=== PATIENT | male | born 1955 | race Caucasian/White ===

== ENCOUNTER 2018-01-04 09:48 | Inpatient (IN) | payer OTHER ==
[2018-01-04] MEDS ORDERED: ISOVUE-370 76%-LOCM 1 ML ONE (10:04)
[2018-01-04] MEDS ORDERED: Labetalol HCl 100 MG/20 ML VIAL ONE (10:18)
[2018-01-04 10:20] LABS: #Eosinphils 0.2 thou/uL (0.0-0.7); #Lymphocytes 1.9 thou/uL (1.20-3.40); #Monocytes 0.4 thou/uL (0.11-0.59); #Neutrophils 7.2 thou/uL (1.40-6.50); %Basophils 0.3 % (0.0-1.0); %Eosinophils 1.9 % (0.0-10.0); %Lymphocytes 19.8 % (21.0-51.0); %Monocytes 4.5 % (0.0-10.0); %Neutrophils 73.5 % (42.0-75.0); Hemoglobin 13.1 g/dL (14.0-18.0); Mean Corpuscular Hemoglobin 29.6 pg (27.0-31.0); Mean Corpuscular Volume 82.2 fL (78.0-98.0); Mean Platelet Volume 8.1 fL (7.4-10.4); Platelet Count 200 thou/uL (130-400); Red Blood Cell (RBC) Count 4.44 mill/uL (4.70-6.10); White Blood Cell (WBC) Count 9.8 thou/uL (4.8-10.8)
[2018-01-04 10:46] LABS: CKMB 3.5 ng/mL (0-6.6); Troponin I Less than 0.010 ng/mL (< 0.028)
--- NOTE | 2018-01-04 10:49 | RAD ---
PORTABLE CHEST ONE VIEW: History: 62-year-old male with history of dyspnea. FINDINGS: Monitor leads overlie the chest. There are bilateral interstitial and alveolar parenchymal changes in the mid and lower lung zones bilaterally with small pleural effusions, greater on the right side. Po ssibilities include that of some developing bilateral edema or less likely, atypical bilateral pneumo nitis. IMPRESSION: Interstitial and alveolar parenchymal changes in the mid and lower lung zones with small right pleura l effusion, concerning for pulmonary edema or atypical pneumonitis. POS: [facility]
[2018-01-04 11:02] LABS: ALT (SGPT) 20 U/L (8-55); AST (SGOT) 18 U/L (5-34); Albumin 3.7 g/dL (3.4-4.8); Alkaline Phosphatase 158 U/L (40-150); Anion Gap 11 mmol/L (10-20); BUN (Urea Nitrogen) 35 mg/dL (8.4-25.7); Bilirubin, Total 0.8 mg/dL (0.2-1.2); CK (CPK) 159 U/L (30-200); Calc. Creatinine Clearance 0 mL/min (70-130); Calcium 8.8 mg/dL (7.8-10.44); Carbon Dioxide 24 mmol/L (23-31); Chloride 103 mmol/L (98-107); Estimated GFR-MDRD 36; Glucose 391 mg/dL (80-115); Lipase 33 U/L (8-78); Potassium 4.7 mmol/L (3.5-5.1); Protein, Total 6.7 g/dL (5.8-8.1); Sodium 133 mmol/L (136-145)
[2018-01-04] MEDS ORDERED: Furosemide 40 MG/4 ML VIAL ONE (11:29)
[2018-01-04] MEDS ORDERED: Nitroglycerin 2% Ointment 1 INCH/1 GM Packet ONE (11:29)
--- NOTE | 2018-01-04 12:00 | CT ---
CT ARTERIOGRAM CHEST WITH IV CONTRAST AND 3D MIP IMAGING: History: Dyspnea. FINDINGS: Good contrast opacification of the pulmonary arteries and thoracic aorta with normal branching of the great vessels. Small amount of bilateral pleural fluid with atelectasis at the lung bases. Airways a re patent. Nonenlarged, nonspecific lymph nodes scattered about the mediastinum. IMPRESSION: 1. No CT evidence of pulmonary embolus. 2. Bilateral pleural effusions. Cause is not evident. POS: [facility]
[2018-01-04] MEDS ORDERED: Dextrose 50% Abboject 50 ML SYRINGE SLOW IVP PRN (13:43)
[2018-01-04] MEDS ORDERED: Acetaminophen 325 MG TAB PO PRN (13:43)
[2018-01-04] MEDS ORDERED: Bisacodyl 5 MG TAB PO PRN (13:43)
[2018-01-04] MEDS ORDERED: Dextrose 5% in Water 1,000 ML IV PRN (13:43)
[2018-01-04 14:15] LABS: Troponin I Less than 0.010 ng/mL (< 0.028)
--- NOTE | 2018-01-04 14:18 | HP ---
DATE OF ADMISSION: 01/04/2018 PRIMARY CARE PROVIDER: Edward Nguyễn M.D. CHIEF COMPLAINT: Shortness of breath. HISTORY OF PRESENT ILLNESS: Mr. Nolasco is a pleasant 62-year-old gentleman who was seen at [facility] on 01/04/2018. Approximately 1-1/2 years ago, he developed shortness of breath. He was initially diagnosed with res piratory tract infection. Subsequently, he was found to have excess fluid. He was seen by cardiolog ist, Dr. Lu at that time. He has not needed to see Dr. Lu again after that. He was re portedly doing well until a couple of weeks ago. He reports a weight gain over the last couple of weeks. He reports shortness of breath with exertion , orthopnea and paroxysmal nocturnal dyspnea. He denies any cough, fevers or chills. He reports low er extremity edema, worse on the left. He reports fatigue with minimal exertion. He was seen by his primary care provider about 4 days ago. He had blood test done, including D-dimer . D-dimer was elevated. He was advised to go to the emergency room that day. However, there was so me misunderstanding and the patient went home. The patient's daughter contacted primary care provide r's office and was told that the patient should go to the emergency room today. Therefore, the patie nt came to the emergency room. REVIEW OF SYSTEMS: All other systems reviewed and found to be negative. PAST MEDICAL HISTORY: Diabetes mellitus, dyslipidemia and hypertension. PAST SURGICAL HISTORY: None. SOCIAL HISTORY: The patient reports occasional alcohol use, no tobacco use or recreational drug use. FAMILY HISTORY: Significant for myocardial infarction in his son. ALLERGIES: No known drug allergies. CURRENT MEDICATIONS: The patient is unable to recall the names of his medications. This will be cla rified by his family when they bring the medication list in to the hospital. PHYSICAL EXAMINATION: GENERAL: Mr. Nolasco is awake and alert, not in acute distress. VITAL SIGNS: Blood pressure is 189/82, pulse is 67, respiratory rate 17 and oxygen saturation 97% on room air. He is afebrile. Earlier, he had blood pressure as high as 211/105. EYES: No scleral icterus. No conjunctival pallor. ENT: Moist mucosal membranes. No oropharyngeal erythema or exudates. NECK: Supple, nontender, trachea is midline. Hepatojugular reflux present. RESPIRATORY: Accessory muscles of breathing are not active. Chest wall movements are symmetric bila terally. He has bibasilar crackles. CARDIOVASCULAR: S1 and S2 are heard, regular. Peripheral pulses palpable. No carotid bruit, no per icardial rub. ABDOMEN: Soft, distended, nontender, bowel sounds are heard, no hepatomegaly, no splenomegaly. NEUROLOGIC: Cranial nerves II-XII intact. Deep tendon reflexes are 2+. MUSCULOSKELETAL: Power is 5/5 in all 4 extremities. LYMPHATIC: No cervical lymphadenopathy. SKIN: No rashes or subcutaneous nodules. He has pitting edema over the left lower extremity. PSYCHIATRIC: Normal mood, normal affect. The patient is oriented to person, place and time. LABORATORY DATA: Mr. Nolasco' labs and investigations were reviewed. I reviewed his electrocardio gram, which shows normal sinus rhythm, no ST changes to suggest an acute coronary syndrome. I also r eviewed his chest x-ray, which shows interstitial edema. He also had CT angiogram of the chest, whic h did not show any CT evidence of pulmonary embolus. He has bilateral pleural effusions. He has nor mal white count, normocytic anemia with hemoglobin 13.1, normal platelet count, decreased sodium of 1 33, elevated blood urea nitrogen of 35, elevated creatinine of 1.92, last known creatinine 1.79 on , elevated alkaline phosphatase of 158, otherwise unremarkable liver profile, normal troponin I and elevated BNP of 372.9 ASSESSMENT AND PLAN: Mr. Nolasco is a pleasant 62-year-old gentleman who was seen at [facility] on 01/04/2018. His problem list includes: 1. Shortness of breath: Most likely secondary to congestive heart failure exacerbation. The rossana poe will be admitted to the hospital for further management. 2. Congestive heart failure exacerbation: The patient is presenting with congestive heart failure e xacerbation. He will be treated with intravenous diuretics. A 2D echocardiogram will be ordered and Cardiology Service will be consulted for opinion and help with management. 3. Chronic kidney disease stage 3: Monitor creatinine and electrolytes, especially since the patien deepika will be receiving intravenous diuretics. The patient has also received intravenous contrast for CT angiogram of the chest. 4. Diabetes mellitus type 2: Start Accu-Cheks, insulin sliding scale. 5. Dyslipidemia: Resume the patient's dyslipidemia medication once clarified. 6. Hypertensive urgency: The patient had blood pressure elevations in the emergency room. We will start the patient on p.r.n. IV hydralazine for now. Once his home medications are clarified, he can be started on home medications if they are not nephrotoxic. Many thanks for allowing me to participate in your patient's care. Please feel free to contact me wi th any questions or concerns. LEVEL OF RISK: High. LEVEL OF COMPLEXITY: High.
[2018-01-04 15:22] VITALS: BMI 30.5
[2018-01-04 17:41] LABS: Troponin I Less than 0.010 ng/mL (< 0.028)
[2018-01-04] MEDS: Furosemide 40 MG/4 ML VIAL SLOW IVP SCH (17:58)
[2018-01-04] MEDS: hydrALAZINE 20 MG/ML VIAL SLOW IVP PRN (17:58)
[2018-01-04] MEDS: HumaLOG 300 UNITS/3 ML VIAL SC PRN (19:01)
[2018-01-04] MEDS: Carvedilol 25 MG TAB PO SCH (20:08)
[2018-01-05 04:27] LABS: #Eosinphils 0.2 thou/uL (0.0-0.7); #Lymphocytes 2.2 thou/uL (1.20-3.40); #Monocytes 0.7 thou/uL (0.11-0.59); #Neutrophils 5.9 thou/uL (1.40-6.50); %Basophils 0.5 % (0.0-1.0); %Eosinophils 2.7 % (0.0-10.0); %Lymphocytes 24.3 % (21.0-51.0); %Monocytes 7.4 % (0.0-10.0); %Neutrophils 65.1 % (42.0-75.0); Hemoglobin 12.3 g/dL (14.0-18.0); Mean Corpuscular Hemoglobin 29.7 pg (27.0-31.0); Mean Corpuscular Volume 82.5 fL (78.0-98.0); Mean Platelet Volume 7.3 fL (7.4-10.4); Platelet Count 178 thou/uL (130-400); RBC Distribution Width 12.7 % (11.5-14.5); Red Blood Cell (RBC) Count 4.13 mill/uL (4.70-6.10); White Blood Cell (WBC) Count 9.1 thou/uL (4.8-10.8)
[2018-01-05 04:47] LABS: Anion Gap 11 mmol/L (10-20); BUN (Urea Nitrogen) 37 mg/dL (8.4-25.7); Calc. Creatinine Clearance 55 mL/min (70-130); Calcium 9.1 mg/dL (7.8-10.44); Carbon Dioxide 25 mmol/L (23-31); Chloride 104 mmol/L (98-107); Estimated GFR-MDRD 43; Glucose 188 mg/dL (80-115); Potassium 4.1 mmol/L (3.5-5.1); Sodium 136 mmol/L (136-145)
[2018-01-05] MEDS: Furosemide 40 MG/4 ML VIAL SLOW IVP SCH ×2 (05:12→16:33)
[2018-01-05] MEDS ORDERED: Enoxaparin Sodium 40 MG/0.4 ML SYRINGE SC SCH (09:00)
[2018-01-05] MEDS: Alogliptin 25 MG TAB PO SCH (09:33)
[2018-01-05] MEDS: Carvedilol 25 MG TAB PO SCH ×2 (09:34→20:09)
--- NOTE | 2018-01-05 10:30 | ADD-ER ---
ADDENDUM Mr. Nolasco's 1 year ago, today being her anniversary. He has been declining over the last 3 weeks with increasing fatigue. I also discussed his code status. He is DNR. DNR status will be entered in the electronic chart.
--- NOTE | 2018-01-05 15:59 | PDOC.PN ---
- Subjective Encounter Start Date: 01/05/18 Encounter Start Time: 10:00 Patient is seen today, along with his Daughter, Pt is Rwandan speaking, has New onset CHF, pending Echo. Dr. Marte consulted. - Objective Resuscitation Status: Resuscitation Status DNR:Do Not Resuscitate MAR Reviewed: Yes Vital Signs & Weight: Vital Signs (12 hours) Temp Pulse Pulse Pulse Resp BP BP 01/05/18 13:26 98.0 F 63 16 01/05/18 09:50 64 65 190/86 H 188/81 H 01/05/18 08:46 01/05/18 08:42 98.7 F 68 16 01/05/18 08:00 98.7 F 68 16 01/05/18 04:00 98.8 F 66 18 BP BP Pulse Ox Pulse Ox Pulse Ox 01/05/18 13:26 141/68 H 94 L 01/05/18 09:50 94 L 95 01/05/18 08:46 183/73 H 01/05/18 08:42 187/84 H 95 01/05/18 08:00 01/05/18 04:00 168/82 H 94 L Weight Weight 181 lb I&O: 01/04/18 01/05/18 01/06/18 06:59 06:59 06:59 Intake Total 150 Output Total 1100 Balance -950 Result Diagrams: 01/05/18 04:04 01/05/18 04:04 Additional Labs: Accuchecks 01/05/18 01/04/18 01/04/18 05:05 21:04 18:54 POC Glucose 172 H 242 H 288 H Radiology Reviewed by me: Yes Phys Exam - Physical Examination HEENT: PERRLA, moist MMs Neck: no nodes, no JVD Respiratory: no rales, no rhonchi, wheezing present Cardiovascular: RRR, no significant murmur Gastrointestinal: soft, non-tender Musculoskeletal: edema present Neurological: non-focal, normal sensation Dx/Plan (1) Acute exacerbation of CHF (congestive heart failure) Code(s): I50.9 - HEART FAILURE, UNSPECIFIED Status: Acute Qualifiers: Heart failure type: unspecified Qualified Code(s): I50.9 - Heart failure, unspecified Comment: Waiitng on Echo results, pt is BB, Lisinopril and Lasix 40mg IV BID, continue, COnsulted Dr. Marte. (2) Exertional dyspnea Code(s): R06.09 - OTHER FORMS OF DYSPNEA Status: Acute Comment: Pt will need Evaalution of Cardiac disease, if abnormal Echo will do stress test. (3) DM type 2 (diabetes mellitus, type 2) Status: Acute Comment: COntinue with oral hypoglycemics, and SSI. keep Bg 140- 180 (4) HTN (hypertension) Code(s): I10 - ESSENTIAL (PRIMARY) HYPERTENSION Status: Acute Comment: will continue with Lisinopril, BB. Add Spironlactone if low Ef. - Plan cont current plan of care, plan discussed w/ family, PT/OT, social welfare clerk, respiratory therapy, incentive spirometry, out of bed/ambulate, DVT proph w/ lovenox * . Review of Systems - Review of Systems Eyes: negative: Pain, Vision Change, Conjunctivae Inflammation, Eyelid Inflammation, Redness, Other ENT: negative: Ear Pain, Ear Discharge, Nose Pain, Nose Discharge, Nose Congestion, Mouth Pain, Mouth Swelling, Throat Pain, Throat Swelling, Other Respiratory: SOB with Excertion, Wheezing. negative: Cough, Dry, Shortness of Breath, Hemoptysis, Pleuritic Pain, Sputum Cardiovascular: orthopnea, edema Gastrointestinal: negative: Nausea, Vomiting, Abdominal Pain, Diarrhea, Constipation, Melena, Hematochezia, Other Genitourinary: negative: Dysuria, Frequency, Incontinence, Hematuria, Retention , Other Musculoskeletal: negative: Neck Pain, Shoulder Pain, Arm Pain, Back Pain, Hand Pain, Leg Pain, Foot Pain, Other - Medications/Allergies Allergies/Adverse Reactions: Allergies Allergy/AdvReac Type Severity Reaction Status Date / Time No Known Drug Allergies Allergy Verified 01/04/18 13:43 Medications: Current Medications Acetaminophen (Tylenol) 650 mg PO Q4H PRN PRN Reason: Headache/Fever or Pain Alogliptin Benzoate (Alogliptin) 12.5 mg PO DAILY [facility] Last Admin: 01/05/18 09:33 Dose: 12.5 mg Bisacodyl (Dulcolax) 10 mg PO DAILYPRN PRN PRN Reason: Constipation Carvedilol (Coreg) 12.5 mg PO BID [facility] Last Admin: 01/05/18 09:34 Dose: 12.5 mg Dextrose/Water (Dextrose 50%) 25 gm SLOW IVP PRN PRN PRN Reason: Hypoglycemia Furosemide (Lasix) 40 mg SLOW IVP 0600,1400 [facility] Last Admin: 01/05/18 05:12 Dose: 40 mg Glipizide (Glucotrol Xl) 5 mg PO QAM-WM [facility] Last Admin: 01/05/18 12:11 Dose: 5 mg Glucagon (Glucagon) 1 mg IM PRN PRN PRN Reason: Hypoglycemia Hydralazine HCl (Apresoline) 10 mg SLOW IVP Q6H PRN PRN Reason: SBP Greater Than 170 Last Admin: 01/04/18 17:58 Dose: 10 mg Dextrose/Water (D5w) 1,000 mls @ 0 mls/hr IV .Q0M PRN PRN Reason: Hypoglycemia Insulin Human Lispro (Humalog) 0 units SC .MILD SLIDING SCALE PRN PRN Reason: Mild Correctional Scale Last Admin: 01/04/18 19:01 Dose: 4 unit
[2018-01-05] MEDS: HumaLOG 300 UNITS/3 ML VIAL SC PRN (18:24)
[2018-01-06] MEDS: hydrALAZINE 20 MG/ML VIAL SLOW IVP PRN (04:18)
[2018-01-06] MEDS: Furosemide 40 MG/4 ML VIAL SLOW IVP SCH ×2 (05:48→15:07)
[2018-01-06] MEDS: Alogliptin 25 MG TAB PO SCH (08:50)
[2018-01-06] MEDS: Carvedilol 25 MG TAB PO SCH ×2 (08:50→20:07)
[2018-01-06] MEDS ORDERED: Lisinopril 2.5 MG TAB PO SCH (09:00)
[2018-01-06 11:20] LABS: Anion Gap 15 mmol/L (10-20); BUN (Urea Nitrogen) 35 mg/dL (8.4-25.7); Calc. Creatinine Clearance 54 mL/min (70-130); Calcium 9.3 mg/dL (7.8-10.44); Carbon Dioxide 24 mmol/L (23-31); Chloride 101 mmol/L (98-107); Estimated GFR-MDRD 43; Glucose 152 mg/dL (80-115); Potassium 4.1 mmol/L (3.5-5.1); Sodium 136 mmol/L (136-145)
[2018-01-06] MEDS ORDERED: Metolazone 5 MG TAB PO SCH (15:15)
--- NOTE | 2018-01-06 15:20 | PDOC.PN ---
- Subjective Encounter Start Date: 01/06/18 Encounter Start Time: 14:00 PAtient is c/o persistant dyspnea on exertion, with SOB, deneis any chest pain, Pt has Low EF waiting for Cardiology to see. Serial tropinins were negative. - Objective Resuscitation Status: Resuscitation Status DNR:Do Not Resuscitate MAR Reviewed: Yes Vital Signs & Weight: Vital Signs (12 hours) Temp Pulse Pulse Pulse Resp BP BP 01/06/18 11:36 98.7 F 65 14 01/06/18 09:15 69 67 145/75 H 147/77 H 01/06/18 08:51 68 01/06/18 08:46 98.2 F 68 16 01/06/18 04:18 55 L 01/06/18 04:15 01/06/18 04:00 98.3 F 62 20 BP BP Pulse Ox Pulse Ox Pulse Ox 01/06/18 11:36 136/74 96 01/06/18 09:15 95 94 L 01/06/18 08:51 01/06/18 08:46 167/79 H 94 L 01/06/18 04:18 01/06/18 04:15 196/85 H 01/06/18 04:00 181/82 H 98 Weight Weight 178 lb I&O: 01/05/18 01/06/18 01/07/18 06:59 06:59 06:59 Intake Total 150 60 Output Total 1100 500 Balance -950 -440 Result Diagrams: 01/05/18 04:04 01/06/18 05:01 Additional Labs: Accuchecks 01/06/18 01/06/18 01/05/18 10:57 05:31 20:38 POC Glucose 324 H 168 H 225 H 01/05/18 15:59 POC Glucose 281 H Radiology Reviewed by me: Yes Phys Exam - Physical Examination HEENT: PERRLA, moist MMs Neck: no nodes, no JVD Respiratory: no wheezing, no rales Cardiovascular: RRR, no significant murmur Gastrointestinal: soft, non-tender Musculoskeletal: no edema, pulses present Neurological: non-focal, normal sensation Lymphatic: no nodes Psychiatric: normal affect, A&O x 3 Skin: no rash, normal turgor Dx/Plan (1) Acute exacerbation of CHF (congestive heart failure) Code(s): I50.9 - HEART FAILURE, UNSPECIFIED Status: Acute Qualifiers: Heart failure type: unspecified Qualified Code(s): I50.9 - Heart failure, unspecified Comment: Waiitgwen on Echo results, pt is BB, Lisinopril and Lasix 40mg IV BID, continue, COnsulted Dr. Marte. (2) Exertional dyspnea Code(s): R06.09 - OTHER FORMS OF DYSPNEA Status: Acute Comment: Pt will need Evaalution of Cardiac disease, if abnormal Echo will do stress test. (3) DM type 2 (diabetes mellitus, type 2) Status: Acute Comment: COntinue with oral hypoglycemics, and SSI. keep Bg 140- 180 (4) HTN (hypertension) Code(s): I10 - ESSENTIAL (PRIMARY) HYPERTENSION Status: Acute Comment: will continue with Lisinopril, BB. Add Spironlactone if low Ef. - Plan cont current plan of care, PT/OT, medical social worker, respiratory therapy, incentive spirometry, DVT proph w/lovenox * . Review of Systems - Review of Systems Constitutional: negative: fever, chills, sweats, weakness, malaise, other Eyes: negative: Pain, Vision Change, Conjunctivae Inflammation, Eyelid Inflammation, Redness, Other ENT: negative: Ear Pain, Ear Discharge, Nose Pain, Nose Discharge, Nose Congestion, Mouth Pain, Mouth Swelling, Throat Pain, Throat Swelling, Other Respiratory: Shortness of Breath, SOB with Excertion, Wheezing Cardiovascular: negative: chest pain, palpitations, orthopnea, paroxysmal nocturnal dyspnea, edema, light headedness, other Gastrointestinal: negative: Nausea, Vomiting, Abdominal Pain, Diarrhea, Constipation, Melena, Hematochezia, Other Musculoskeletal: negative: Neck Pain, Shoulder Pain, Arm Pain, Back Pain, Hand Pain, Leg Pain, Foot Pain, Other Skin: negative: Rash, Lesions, Jd, Bruising, Other - Medications/Allergies Allergies/Adverse Reactions: Allergies Allergy/AdvReac Type Severity Reaction Status Date / Time No Known Drug Allergies Allergy Verified 01/04/18 13:43 Medications: Current Medications Acetaminophen (Tylenol) 650 mg PO Q4H PRN PRN Reason: Headache/Fever or Pain Alogliptin Benzoate (Alogliptin) 12.5 mg PO DAILY [facility] Last Admin: 01/06/18 08:50 Dose: 12.5 mg Amlodipine Besylate (Norvasc) 5 mg PO DAILY [facility] Bisacodyl (Dulcolax) 10 mg PO DAILYPRN PRN PRN Reason: Constipation Carvedilol (Coreg) 12.5 mg PO BID [facility] Last Admin: 01/06/18 08:50 Dose: 12.5 mg Dextrose/Water (Dextrose 50%) 25 gm SLOW IVP PRN PRN PRN Reason: Hypoglycemia Furosemide (Lasix) 40 mg SLOW IVP 0600,1400 [facility] Last Admin: 01/06/18 15:07 Dose: 40 mg Glipizide (Glucotrol Xl) 5 mg PO [facility] Last Admin: 01/06/18 08:50 Dose: 5 mg Glucagon (Glucagon) 1 mg IM PRN PRN PRN Reason: Hypoglycemia Hydralazine HCl (Apresoline) 10 mg SLOW IVP Q6H PRN PRN Reason: SBP Greater Than 170 Last Admin: 01/06/18 04:18 Dose: 10 mg Dextrose/Water (D5w) 1,000 mls @ 0 mls/hr IV .Q0M PRN PRN Reason: Hypoglycemia Insulin Human Lispro (Humalog) 0 units SC .MILD SLIDING SCALE PRN PRN Reason: Mild Correctional Scale Last Admin: 01/05/18 18:24 Dose: 4 unit Metolazone (Zaroxolyn) 5 mg PO ONE [facility] Spironolactone (Aldactone) [facility]
[2018-01-06 16:25] LABS: Troponin I Less than 0.010 ng/mL (< 0.028)
[2018-01-06] MEDS: Amlodipine 5 MG TAB PO SCH (16:32)
[2018-01-06] MEDS: HumaLOG 300 UNITS/3 ML VIAL SC PRN (17:43)
--- NOTE | 2018-01-06 20:35 | CON ---
DATE OF CONSULTATION: 01/06/2018 DATE OF ADMISSION: 01/04/2018 CARDIOLOGY CONSULT NOTE INDICATION FOR CONSULTATION: A 62-year-old gentleman with a history of cardiomyopathy was admitted w ith increasing shortness of breath. We were asked to see him. Also has history of hypertension. HISTORY OF PRESENT ILLNESS: This is a very unfortunate 62-year-old gentleman who has been followed b y Dr. Lu in the past. He actually saw back in 2017. He had at that time was diagnosed with c ardiomyopathy and ejection fraction is estimated at 20%-25%. He underwent a nuclear study which also showed ejection fraction about 26%. He had an inferior scar was advised to undergo cardiac catheter ization, but due to finances, this was not performed. He declined it. He also was advised to have a LifeVest and this also was declined. He had not seen Dr. Lu since 2016, but has been noticin g he recently had increasing shortness of breath. He also had some lower extremity edema and complai nohelia of some leg discomfort when he walked as claudication type symptoms. He presented to his primary care physician's office complaining of shortness of breath and had a D-dimer performed and apparentl y this was elevated and he was advised to go to the emergency room. He did not quite understand what it was being told and then daughter called back a couple days later and several days later he actual ly presented to the emergency room and was admitted with a diagnosis of congestive heart failure. He did undergo a CT angiogram, which did not show any evidence of a pulmonary embolus. His cardiac enz ymes are negative for myocardial infarction. He does have a history of bilateral pleural effusions i n the past and on this chest x-ray at this time, he also has small bilateral pleural effusions, but n ot enough that would account for his increasing shortness of breath. Also, he has a long history of hypertension, which has been poorly controlled, has been very difficult to control. He has been plac ed on DEE inhibitors and his creatinine has increased from 0.9 up to 1.9 on this admission between until the present date uncertain as to when he was started on DEE, I believe he was already on DEE inhibitors and the creatinine had remained normal. At this time, he is pain free. He denies any chest pain, but does have a history of diabetes. He complains also of weight gain over the last cou ple of weeks, which most likely is due to volume overload. He has not been paying close attention to his fluid intake nor to his sodium intake. He has apparently been taking his medications. He has rojas d some problem, perhaps with depression and anxiety after his less than a year ago and most likely he has not been taking care of himself and he has not been seen in the office again since his last visit back in I believe June or July of 2016. His echocardiogram at that time did show ej ection fraction about 25%-30%. He had a repeat echocardiogram yesterday, which showed ejection fract ion about 30%-35%. He also had mild to moderate mitral valve regurgitation as well as some mild tric uspid valve regurgitation. At this time, he is feeling better. He is able to ambulate. He has been urinating quite a bit. He had not been keeping up correctly with his I's and O's and he has been do ubling out the urine himself and the I's and O's from the nursing staff do not reflect the amount of urine output the patient has had and actual his creatinine has slightly improved. PAST MEDICAL HISTORY: Significant for the hypertension, diabetes and dyslipidemia. He has had no past surgical history. SOCIAL HISTORY: According to the records, he has occasional alcohol use disorder says he does not dr ink. He has no tobacco abuse. He lives at home with his family. FAMILY HISTORY: Apparently, he has a son who has also suffered a myocardial infarction, underwent an gioplasty and stent placement. ALLERGIES: . MEDICATIONS PRIOR TO ADMISSION: Should have included glipizide, lisinopril/hydrochlorothiazide, furo semide 20 mg a day, Coreg 12.5 mg b.i.d. and Januvia 50 mg daily. REVIEW OF SYSTEMS: Difficult to obtain. His daughter is there as an line o scribe operator. According to the daughter, he has only been complaining of some shortness of breath, occasional coughing and some disc omfort in his legs when he walks. Otherwise, there was no significant other GI or complaints or m usculoskeletal, neurological complaints on the review of systems. PHYSICAL EXAMINATION: GENERAL: Reveals a well-developed, well-nourished gentleman. He is in no acute distress at this [facility]. VITAL SIGNS: Blood pressure is 196/85, heart rate is in the 50s-60s and shows a sinus rhythm on the monitor. He is afebrile and respiratory rate is about 20. HEENT: Shows the head to be normocephalic and atraumatic. NECK: Carotid pulses are present. I did not hear any bruits. I do not see any JVD. The thyroid di d not appear to be enlarged. CHEST: Clear to auscultation. I did not hear any rales, rhonchi or wheezing. CARDIOVASCULAR: Exam reveals a regular rate and rhythm with a normal S1, S2, but I did not hear an S 3 nor an S4 and there were no gallops. No significant murmurs were noted. ABDOMEN: Shows some mild obesity with positive bowel sounds. No organomegaly or masses. No tendern ess. I did not hear any bruits. Femoral pulses are present. EXTREMITIES: Showed 1-2+ lower extremity edema. The left lower extremity was slightly more edematou s than the right. Pedal pulses, I cannot palpate a right posterior tibial pulse, the anterior tibial pulses and dorsalis pedis pulse were present on the left side. On the right side, I could palpate t he posterior tibial, but could not palpate a dorsalis pedis pulse. NEUROLOGIC: He appears to be fully intact. He appeared to have normal strength and tone. He ambula sumi without any difficulties. LABORATORY AND DATA: Shows a creatinine of 1.64. His creatinine previously in May was 0.96 incr eased up to 1.39 and then yesterday on the day of admission was 1.92. His BUN was 37, potassium was 4.1. Blood sugars have anywhere between 172-235. His WBC was 9.1, hemoglobin 12.3, platelet count o f 178,000. Chest x-ray did show some mild congestion, but very minimal and his BNP was 372 and there were small bilateral pleural effusions. His EKG showed a sinus rhythm without any acute changes. He did have a n incomplete right bundle branch block, but no evidence of ischemia. He did have some T-wave changes in the lateral leads, which could be indicative of possibly lateral ischemia. This may be due to th e incomplete right bundle branch block with some nonspecific changes. IMPRESSION: 1. Congestive heart failure symptoms in a patient with a history of cardiomyopathy in the past who h as not been compliant with his sodium and fluid intake. He has apparently been diuresing quite well with the Lasix and we will continue this regimen at this time. 2. Chronic kidney disease, which has developed within the last year and a half. I will hold his DEE inhibitors at this time to see whether or not the renal function will improve, would have to give co nsideration to possible renal artery stenosis with the hypertension, which has been difficult to cont rol on several medications, but I do not hear bruit. This can be evaluated later by arteriograms or either Doppler evaluation, also with the chronic kidney disease, this is most likely; however, is due to the combination of the hypertension and the diabetes. 3. Diabetes, which will be dealt by the primary care service. 4. History of cardiomyopathy with ejection fraction previously over a year ago 20%-25%, and now is i ncreased at 30%-35%. This will be dealt with also. We will need to rediscuss the possibility of an AICD in this gentleman, also prior to that most likely he will need to undergo a cardiac catheterizat ion to rule out evidence of significant coronary artery disease as the possible etiology of his cardi omyopathy. Previous stress testing did show evidence of possible inferior scar with a decrease in ej ection fraction, but at that time, the patient did refuse to undergo cardiac catheterization due to l ack of finances. Dr. Lu will resume the care of the patient tomorrow and further recommendati ons will depend on his judgment after he sees the patient.
[2018-01-07] MEDS: Furosemide 40 MG/4 ML VIAL SLOW IVP SCH ×2 (05:24→15:22)
[2018-01-07 06:20] LABS: Anion Gap 12 mmol/L (10-20); BUN (Urea Nitrogen) 46 mg/dL (8.4-25.7); Calc. Creatinine Clearance 42 mL/min (70-130); Carbon Dioxide 28 mmol/L (23-31); Chloride 99 mmol/L (98-107); Estimated GFR-MDRD 32; Glucose 179 mg/dL (80-115); Potassium 4.1 mmol/L (3.5-5.1); Sodium 135 mmol/L (136-145)
[2018-01-07] MEDS ORDERED: Spironolactone 25 MG TAB PO SCH (08:00)
[2018-01-07] MEDS ORDERED: Lisinopril 10 MG TAB PO SCH (09:00)
--- NOTE | 2018-01-07 10:53 | PDOC.PN ---
- Subjective Encounter Start Date: 01/07/18 Encounter Start Time: 10:51 - Objective Resuscitation Status: Resuscitation Status DNR:Do Not Resuscitate MAR Reviewed: Yes Vital Signs & Weight: Vital Signs (12 hours) Temp Pulse Resp BP BP Pulse Ox 01/07/18 08:18 98.1 F 62 14 152/70 H 98 01/07/18 03:05 98.8 F 66 16 133/67 95 01/06/18 23:30 97.9 F 68 16 127/64 96 Weight Weight 180 lb I&O: 01/06/18 01/07/18 01/08/18 06:59 06:59 06:59 Intake Total 60 1560 Output Total 500 3700 Balance -440 -2140 Result Diagrams: 01/05/18 04:04 01/07/18 05:38 Additional Labs: Accuchecks 01/07/18 01/06/18 01/06/18 05:35 21:00 17:09 POC Glucose 185 H 178 H 257 H 01/06/18 10:57 POC Glucose 324 H Phys Exam - Physical Examination HEENT: PERRLA Respiratory: no wheezing, no rales, no rhonchi, clear to auscultation bilateral Cardiovascular: RRR, no significant murmur, no rub Gastrointestinal: soft, non-tender, positive bowel sounds Musculoskeletal: edema present 2+ pitting edema of both lower extremities Dx/Plan (1) Acute on chronic systolic heart failure, NYHA class 2 Code(s): I50.23 - ACUTE ON CHRONIC SYSTOLIC (CONGESTIVE) HEART FAILURE Status : Acute (2) DM type 2 (diabetes mellitus, type 2) Status: Chronic Comment: COntinue with oral hypoglycemics, and SSI. keep Bg 140-180 (3) HTN (hypertension) Code(s): I10 - ESSENTIAL (PRIMARY) HYPERTENSION Status: Chronic Comment: will continue with Lisinopril, BB. Add Spironlactone if low Ef. (4) Acute on chronic kidney failure Code(s): N17.9 - ACUTE KIDNEY FAILURE, UNSPECIFIED; N18.9 - CHRONIC KIDNEY DISEASE, UNSPECIFIED Status: Acute - Plan * Acute on chronic systolic heart failure- he is diuresing well * Awaiting further recommendations from Cardiology * Acute on chronic kidney failure- likely a result of Lasix- will continue to monitor. * DM- blood glucose is stable * HTN- blood pressure is better * Stress test is ordered
[2018-01-07] MEDS: Alogliptin 25 MG TAB PO SCH (11:16)
[2018-01-07] MEDS: Carvedilol 25 MG TAB PO SCH ×2 (11:17→21:42)
[2018-01-07] MEDS: HumaLOG 300 UNITS/3 ML VIAL SC PRN ×2 (11:18→17:07)
--- NOTE | 2018-01-07 16:50 | PRG ---
DATE OF SERVICE: 01/07/2018 SUBJECTIVE: Mr. Nolasco is doing well. He states he has less shortness of breath, no chest pain o r pressure noted. PHYSICAL EXAMINATION: GENERAL: Patient is a pleasant male who is in no acute distress. The patient appears his stated age. VITAL SIGNS: Blood pressure 150/76, pulse 65, temperature 98.2. NEUROLOGIC: The patient is alert and oriented times 3 with no focal neurologic deficits. HEENT: Sclerae without icterus. Mouth has moist mucous membranes with normal pallor. NECK: No JVD. Carotid upstroke brisk. No bruits bilaterally. LUNGS: Clear to auscultation with unlabored respirations. BACK: No scoliosis or kyphosis. CARDIAC: Regular rate and rhythm with normal S1 and S2. No S3 or S4 noted. No significant rubs, murmurs, thrills, or gallops noted throughout the precordium. PMI is not displaced. There is no parasternal heave. ABDOMEN: Soft, nontender, nondistended. No peritoneal signs present. No hepatosplenomegaly. No abnormal striae. EXTREMITIES: 2+ femoral and 2+ dorsalis pedis pulses. No cyanosis, clubbing, or edema. SKIN: No gross abnormalities. PERTINENT LABORATORY DATA: Hemoglobin 12.3. IMPRESSION: Acute on chronic systolic heart failure. RECOMMENDATIONS: I discussed proceeding with coronary angiography with Mr. Nolasco. I discussed r isks and benefits. We discussed this in the past along the office. Unfortunately, he has not been c ompliant with these visits. He would like to proceed with medical therapy. He also has refused Life Vest in the past. I would therefore continue with beta ivette therapy, DEE inhibitor therapy, april nolactone and metolazone. Continue Imdur.
[2018-01-07] MEDS: Amlodipine 5 MG TAB PO SCH (17:03)
[2018-01-08] MEDS: Furosemide 40 MG/4 ML VIAL SLOW IVP SCH (05:30)
--- NOTE | 2018-01-08 06:00 | PDOC.CTH ---
Cardiology Progress Note - Subjective Doing well. Back to BL - Objective Vital Signs Temp Pulse Resp BP BP Pulse Ox 01/08/18 03:22 98.2 F 69 16 151/68 H 99 01/07/18 20:05 96.7 F L 66 12 158/68 H 97 Weight 176 lb 9.6 oz 01/06/18 01/07/18 01/08/18 06:59 06:59 06:59 Intake Total 60 1560 1094 Output Total 500 3700 1285 Balance -440 -2140 -191 - Physical Examination General/Neuro: alert & oriented x3, NAD Neck: carotid US brisk, no JVD present Lungs: CTA, unlabored respirations Heart: PMI normal, RRR Abdomen: NT/ND, soft Extremities: + femoral B - Labs Result Diagrams: 01/05/18 04:04 01/07/18 05:38 Troponin/CKMB CK-MB (CK-2) 3.5 ng/mL (0-6.6) 01/04/18 10:02 Troponin I Less than 0.010 ng/mL (< 0.028) 01/06/18 15:51 - Assessment/Plan acute on chronis systolih HF CKD After discussing angio with pt, he has deferred after discussing risks of contrast nephropathy (discussed in [place]) PT opts for medical therapy Add po hydralazine stop spirolactone secondary to RI increase indur No changes in coreg given HR in the 60's Dicussed lifevst once again. Pt not interested. ALso disucssed ICD placmeent. Daughter present. Pt not interested. Daughter states he is DNR and bith agree on med treatemnt. Pt understands risks of SCD
[2018-01-08] MEDS ORDERED: Sodium Chloride 0.9% 10 ML ONE (08:42)
[2018-01-08] MEDS ORDERED: hydrALAZINE 25 MG TAB PO SCH (09:00)
--- NOTE | 2018-01-08 09:37 | PDOC.PN ---
- Subjective Encounter Start Date: 01/08/18 Encounter Start Time: 09:36 Mr. Nolasco was seen today in follow-up of CHF exacerbation. He does not have any complaints. He denies feeling short of breath and denies chest pain. He has been walking without difficulty. - Objective Resuscitation Status: Resuscitation Status DNR:Do Not Resuscitate MAR Reviewed: Yes Vital Signs & Weight: Vital Signs (12 hours) Temp Pulse Resp BP BP Pulse Ox 01/08/18 08:00 97.8 F 62 16 136/65 94 L 01/08/18 03:22 98.2 F 69 16 151/68 H 99 Weight Weight 176 lb 9.6 oz I&O: 01/07/18 01/08/18 01/09/18 06:59 06:59 06:59 Intake Total 1560 1094 Output Total 3700 1285 Balance -2140 -191 Result Diagrams: 01/05/18 04:04 01/07/18 05:38 Additional Labs: Accuchecks 01/08/18 01/07/18 01/07/18 05:18 20:40 16:17 POC Glucose 196 H 237 H 214 H 01/07/18 10:50 POC Glucose 214 H Phys Exam - Physical Examination HEENT: PERRLA Respiratory: no wheezing, no rales, no rhonchi, clear to auscultation bilateral Cardiovascular: RRR, no significant murmur, no rub Gastrointestinal: soft, non-tender, positive bowel sounds Musculoskeletal: no edema Dx/Plan (1) Acute on chronic systolic heart failure, NYHA class 2 Code(s): I50.23 - ACUTE ON CHRONIC SYSTOLIC (CONGESTIVE) HEART FAILURE Status : Acute (2) DM type 2 (diabetes mellitus, type 2) Status: Chronic Comment: COntinue with oral hypoglycemics, and SSI. keep Bg 140-180 (3) HTN (hypertension) Code(s): I10 - ESSENTIAL (PRIMARY) HYPERTENSION Status: Chronic Comment: will continue with Lisinopril, BB. Add Spironlactone if low Ef. (4) Acute on chronic kidney failure Code(s): N17.9 - ACUTE KIDNEY FAILURE, UNSPECIFIED; N18.9 - CHRONIC KIDNEY DISEASE, UNSPECIFIED Status: Acute - Plan * CHF exacerbation - improved- he is clinically improved, I suspect he is at his baseline/euvolemic * He does not want cardiac catheterization or life vest * Stable for discharge home.
[2018-01-08] MEDS: Alogliptin 25 MG TAB PO SCH (09:58)
[2018-01-08] MEDS: Carvedilol 25 MG TAB PO SCH (10:03)
[2018-01-08] MEDS ORDERED: hydrALAZINE 10 MG TAB PO SCH ×2 (10:15→15:00)
[2018-01-08] MEDS: HumaLOG 300 UNITS/3 ML VIAL SC PRN ×2 (10:31→12:20)
--- NOTE | 2018-01-08 11:29 | DIS ---
PRIMARY CARE PHYSICIAN: Dr. Edward Nguyễn. DATE OF ADMISSION: 01/04/2018 DATE OF DISCHARGE: 01/08/2018 DISCHARGE DISPOSITION: Home. PRIMARY DISCHARGE DIAGNOSES: 1. Acute on chronic systolic heart failure. 2. Acute respiratory failure secondary to #1 with hypoxemia. 3. Diabetes mellitus, type 2. 4. Hypertension. 5. Dyslipidemia. DISCHARGE MEDICATION: Please note that the patient was taken off lisinopril, hydrochlorothiazide due to acute renal failure. He was also not continued on spironolactone for the same reason and Lasix w as increased to 40 mg daily. Hydralazine 10 mg t.i.d. was added. Continue Januvia 50 mg daily, glip izide 5 mg daily, and carvedilol 12.5 mg twice a day. PROCEDURES DONE DURING ADMISSION: The patient had an echocardiogram in which the ejection fraction w as estimated at 30% to 35%. There was mild to moderate mitral regurgitation present. CODE STATUS: DNR. ALLERGIES: No known drug allergies. HOSPITAL COURSE: Mr. Nolasco is a pleasant 62-year-old gentleman, who presented to the emergency r oom with complaints of shortness of breath. He had an elevated D-dimer in the ER and for this reason , a CT angiogram of the chest was done, which was negative for PE. It did show some bilateral pleura l effusions. He was suspected of having an acute on chronic systolic heart failure exacerbation and placed on IV diuretics. He diuresed well. However, he did have a bump in his creatinine as a result of the diuresis and for this reason, he was taken off the lisinopril as well as Aldactone. He will need to have a BMP checked post-discharge to determine stabilization of his renal function. He refus ed to have a cardiac catheterization due to concerns for worsening renal function and also was not in terested in a LifeVest. Therefore, once he was clinically stable, he was able to be discharged home with close followup.
[2018-01-08 13:04] VITALS: TEMP 97.1
[2018-01-08 14:31] VITALS: BP 168/72
--- NOTE | 2018-01-09 16:37 | EKG ---
Test Reason : SOB,ELEVATED DDIMER Blood Pressure : / mmHG Vent. Rate : 088 BPM Atrial Rate : 088 BPM P-R Int : 158 ms QRS Dur : 104 ms QT Int : 366 ms P-R-T Axes : 023 -18 119 degrees QTc Int : 442 ms Normal sinus rhythm Incomplete right bundle branch block Abnormal ECG Confirmed by PARAG FLETCHER ([id number]), editor news NICHOLAS CRAVEN ([id number]) on 01/09/2018 4:37:09 PM Referred By: Confirmed By:PARAG FLETCHER
== END 2018-01-08 12:45 | disposition home or self-care (01) | DRG 291 ==
LOC: ERS 09:48 → ERHOLD 13:10 → 2NO 15:16
PROVIDERS: ADMIT Internal Medicine; ATTEND Internal Medicine
DX: I13.0 Hypertensive heart and chronic kidney disease with heart failure and stage 1 through stage 4 chronic kidney disease, or unspecified chronic kidney disease (principal); I50.23 Acute on chronic systolic (congestive) heart failure; J96.01 Acute respiratory failure with hypoxia; N17.9 Acute kidney failure, unspecified; E78.5 Hyperlipidemia, unspecified; D64.9 Anemia, unspecified; N18.3 Chronic kidney disease, stage 3 (moderate); E11.22 Type 2 diabetes mellitus with diabetic chronic kidney disease; I16.0 Hypertensive urgency; Z66 Do not resuscitate; I34.0 Nonrheumatic mitral (valve) insufficiency; I42.9 Cardiomyopathy, unspecified; I45.10 Unspecified right bundle-branch block; Z79.84 Long term (current) use of oral hypoglycemic drugs
CPT/HCPCS: 36415; 36416; 71045; 71275; 80048; 80053; 82553; 83690; 83880; 84484; 85025; 93005; 93306; 93798; 96361; 96374; 96375; A4216; J0360; J1940

== ENCOUNTER 2018-05-04 11:18 | Inpatient (IN) | payer OTHER ==
[2018-05-04] MEDS ORDERED: Nitroglycerin 0.4 MG TAB (25 Tab Bottle) ONE (11:49)
[2018-05-04] MEDS ORDERED: Nitroglycerin 2% Ointment 1 INCH/1 GM Packet ONE (11:49)
--- NOTE | 2018-05-04 11:56 | RAD ---
PORTABLE CHEST ONE VIEW: Date: 05-04-18 Time: 11:33 a.m. History: Dyspnea. Cough. FINDINGS: Comparison is made with exam of 01-04-18. The heart size is borderline. There is mild perivascular congestion. A small right pleural effusion i s present. No pneumothoraces or lobar consolidation is identified. Possibility of CHF should be consi dered. POS: [facility]
[2018-05-04 12:08] LABS: #Eosinphils 0.2 thou/uL (0.0-0.7); #Lymphocytes 1.3 thou/uL (1.20-3.40); #Monocytes 0.7 thou/uL (0.11-0.59); #Neutrophils 9.1 thou/uL (1.40-6.50); %Basophils 0.4 % (0.0-1.0); %Eosinophils 1.3 % (0.0-10.0); %Lymphocytes 11.4 % (21.0-51.0); %Monocytes 6.5 % (0.0-10.0); %Neutrophils 80.4 % (42.0-75.0); Hemoglobin 12.1 g/dL (14.0-18.0); Mean Corpuscular HGB CONC 32.8 g/dL (32.0-36.0); Mean Corpuscular Hemoglobin 28.1 pg (27.0-31.0); Mean Corpuscular Volume 85.6 fL (78.0-98.0); Mean Platelet Volume 7.7 fL (7.4-10.4); Platelet Count 242 thou/uL (130-400); RBC Distribution Width 12.2 % (11.5-14.5); Red Blood Cell (RBC) Count 4.29 mill/uL (4.70-6.10); White Blood Cell (WBC) Count 11.3 thou/uL (4.8-10.8)
[2018-05-04 12:14] LABS: ALT (SGPT) 15 U/L (8-55); AST (SGOT) 16 U/L (5-34); Albumin 3.7 g/dL (3.4-4.8); Alkaline Phosphatase 145 U/L (40-150); Anion Gap 11 mmol/L (10-20); BUN (Urea Nitrogen) 36 mg/dL (8.4-25.7); Bilirubin, Total 0.9 mg/dL (0.2-1.2); CK (CPK) 149 U/L (30-200); Calc. Creatinine Clearance 0 mL/min (70-130); Calcium 9.5 mg/dL (7.8-10.44); Carbon Dioxide 27 mmol/L (23-31); Chloride 103 mmol/L (98-107); Estimated GFR-MDRD 37; Globulin 3.5 g/dL (2.4-3.5); Glucose 271 mg/dL (80-115); Potassium 4.3 mmol/L (3.5-5.1); Protein, Total 7.2 g/dL (5.8-8.1); Sodium 137 mmol/L (136-145)
[2018-05-04] MEDS ORDERED: Furosemide 40 MG/4 ML VIAL ONE (13:07)
--- NOTE | 2018-05-04 14:44 | HP ---
PRIMARY CARE PHYSICIAN: Edward Nguyễn MD. REASON FOR ADMISSION: Hypertensive urgency, acute on chronic systolic congestive heart failure. HISTORY OF PRESENT ILLNESS: A 62-year-old male, who has underlying history of hypertension, diabetes type 2, dyslipidemia, as well as systolic heart failure based on December 2017 echocardiography, showed EF 30% to 35%. The patient was taking his medication as prescribed, but for last 2 to 3 weeks, he has increasing shortness of breath. Nowadays, he is only able to walk a few steps, and he gets out of breath. He gives classic history of orthopnea, PND, and increasing lower extremity edema during this period, which is gradually getting worse day by day. The patient reports that his oral Lasix is not helping to reduce his swelling and shortness of breath. He also has dry cough, and he can hear by himself his own wheezing. He has gained significant amount of weight. Today, he went to see Dr. Lu, where they did echocardiography, but the patient was having anasarca, and that is why Dr. Lu advised him to go to emergency room for evaluation. In the emergency room, the patient was having hypertensive urgency with blood pressure 222/109. His chest x-ray showed significant pulmonary vascular congestion, and he was found to be volume overloaded. He denies any fever or chills. He denies any hemoptysis. He denies any pleurisy or pleuritic chest pain or angina. He denies any palpitation. He denies any syncope. He denies any UTI symptoms, constipation, diarrhea, melena, or hematochezia. REVIEW OF SYSTEMS: CONSTITUTIONAL: Negative for weight loss or gain, ability to conduct usual activities. SKIN: Negative for rash, itching. EYES: Negative for double vision, pain. ENT/MOUTH: Negative for nose bleeding, neck stiffness, pain, tenderness. CARDIOVASCULAR: Negative for palpitations, dyspnea on exertion, orthopnea. RESPIRATORY: Negative for shortness of breath, wheezing, cough, hemoptysis, fever or night sweats. GASTROINTESTINAL: Negative for poor appetite, abdominal pain, heartburn, nausea, vomiting, constipation, or diarrhea. GENITOURINARY: Negative for urgency, frequency, dysuria, nocturia. MUSCULOSKELETAL: Negative for pain, swelling. NEUROLOGIC/PSYCHIATRIC: Negative for anxiety, depression. ALLERGY/IMMUNOLOGIC: Negative for skin rash, bleeding tendency. Please see my HPI for pertinent positive and negative. All other review of systems reviewed and negative except as mentioned in HPI. EMERGENCY ROOM COURSE: The patient is given nitroglycerin sublingual, nitroglycerin patch transdermal, and labetalol 10 mg IV. PAST MEDICAL HISTORY: Diabetes type 2, hypertension, dyslipidemia, chronic systolic congestive heart failure with EF 30% to 35%, chronic kidney disease stage 3. PAST SURGICAL HISTORY: Reviewed and negative. PAST PSYCHIATRIC HISTORY: Reviewed and negative. SOCIAL HISTORY: The patient lives at home with family. No history of tobacco, alcohol, or illicit drug abuse. FAMILY HISTORY: Positive for diabetes and hypertension among several family members. Positive for VT to his son as well. No family history of cancer. ALLERGIES: NO KNOWN DRUG ALLERGIES. CURRENT HOME MEDICATIONS: 1. Coreg 25 mg twice daily. 2. Hydralazine 10 mg three times daily. 3. Lipitor 40 mg p.o. at bedtime. 4. Lasix 40 mg daily. 5. Glucotrol 5 mg daily. 6. Januvia 50 mg p.o. daily. PHYSICAL EXAMINATION: VITAL SIGNS: On arrival, blood pressure 222/109, pulse 76, respiratory rate 20, temperature 98.4, saturation 98% on room air. Weight 86.1 kg. GENERAL: The patient is currently alert, awake. No obvious acute distress. HEENT: Head; normocephalic, atraumatic. Eyes; pupils are round, reactive to light. Extraocular muscle intact. ENT; oropharynx within normal limits. Moist mucous membranes. No oral lesion. No pharyngeal erythema. No exudate. NECK: Supple. JVD noted. No thyromegaly. No carotid bruit. LUNGS: Bibasilar rales noted. Bilateral end expiratory wheezing heard. No accessory muscles of respiration in use. CARDIAC: S1 and S2, regular. No murmur elicited. No gallop present. ABDOMEN: Soft. Bowel sounds present. Nontender. Nondistended. No organomegaly. No mass. No suprapubic tenderness. BACK: Unremarkable. No CVA tenderness. EXTREMITIES: Upper extremity; passive movement of all joints are normal. Lower extremity; bilateral lower extremity pitting edema noted. SKIN: No skin rash. HEMATOLOGICAL: No lymphadenopathy. PSYCHIATRIC: Normal affect. NEUROLOGIC: Nonfocal examination. SIGNIFICANT LABORATORY DATA: EKG showing normal sinus rhythm, nonspecific ST-T changes in anterolateral leads. Chest x-ray showing cardiomegaly, right pleural effusion, bilateral pulmonary vascular congestion noted. CBC; WBC is 11.3, hemoglobin 12.1, platelet 242. BMP; sodium 137, potassium 4.3, chloride 103, carbon dioxide 27, anion gap 11, BUN 36, creatinine 1.84, glucose 271, calcium 9.5. LFT; AST 16, ALT 15, alkaline phosphatase 145, albumin 3.7. CK 149. Troponin I less than 0.010. BNP 592.7. ASSESSMENT AND PLAN: 1. Acute on chronic systolic congestive heart failure exacerbation, ACC stage C. This patient has orthopnea, paroxysmal nocturnal dyspnea, lower extremity edema, dyspnea on exertion, bilateral pulmonary vascular congestion on chest x-ray as well as on examination with elevated JVD and gallop along with elevated BNP consistent with congestive heart failure exacerbation, likely precipitated by underlying uncontrolled hypertension. This patient will require admission for diuresis. We will continue with Lasix 40 mg IV b.i.d., fluid restriction 1200 mL per day, nitroglycerin patch q.8 hourly. We will monitor daily weight, input and output chart, and we will replace electrolytes accordingly. We will check uric acid, magnesium, and TSH tomorrow. Cardiology will be consulted as this patient had echocardiography in their office. At this point, because the patient has significant pulmonary edema, we will reduce the dose of Coreg and then we will increase accordingly. We will continue with his home medication hydralazine, and we will also consider adding this DEE inhibitor and ARB during this admission. 2. Hypertensive urgency/emergency. The patient's blood pressure is out of control. He will need nitroglycerin patch q.8 hourly. We will start Coreg at low dose as well as Lasix and hydralazine. Depending upon blood pressure, we will titrate his blood pressure medication. 3. Diabetes type 2. We will continue with insulin as per sliding scale. We will check urinalysis, urine protein-creatinine ratio, and continue glipizide 5 mg p.o. daily along with Januvia 50 mg p.o. daily. We will check hemoglobin A1c tomorrow. 4. Chronic kidney disease stage 3. We will monitor renal function. Avoid nephrotoxin agent. 5. Dyslipidemia. We will check lipid profile tomorrow and start Lipitor 10 mg p.o. at bedtime. 6. Deep venous thrombosis prophylaxis with Lovenox 40 mg subcu daily. 7. GI prophylaxis with Pepcid 20 mg p.o. b.i.d. CODE STATUS: The patient is full code. The patient's son is surrogate decision maker. DISPOSITION PLAN: Based on clinical course, we are expecting the patient's stay in the hospital more than 2 midnights. Plan of care discussed with the patient and his son at bedside in the emergency room. Job ID: [id number]
[2018-05-04] MEDS ORDERED: Eucerin (Mineral Oil/Petrolatum,White) 30 gm Jar TOP PRN (16:18)
[2018-05-04] MEDS ORDERED: Dextrose 5% in Water 1,000 ML IV PRN (16:18)
[2018-05-04] MEDS ORDERED: Bisacodyl 10 MG SUPP PR PRN (16:18)
[2018-05-04] MEDS ORDERED: Bisacodyl 5 MG TAB PO PRN (16:18)
[2018-05-04] MEDS ORDERED: Ondansetron PF 4 MG/2 ML Vial IVP PRN (16:18)
[2018-05-04] MEDS ORDERED: Labetalol HCl 100 MG/20 ML VIAL SLOW IVP PRN (16:18)
[2018-05-04] MEDS ORDERED: HYDROcodone/Acetaminophen 5/325 mg Tablet PO PRN (16:18)
[2018-05-04] MEDS ORDERED: Senokot S 8.6-50 MG TAB PO PRN (16:18)
[2018-05-04] MEDS ORDERED: Nitroglycerin 0.4 MG TAB (25 Tab Bottle) SL PRN (16:18)
[2018-05-04] MEDS ORDERED: Zolpidem Tartrate 5 MG TAB PO PRN ×2 (16:18)
[2018-05-04] MEDS ORDERED: HumaLOG 300 UNITS/3 ML VIAL SC PRN (16:18)
[2018-05-04] MEDS ORDERED: hydrALAZINE 20 MG/ML VIAL SLOW IVP PRN (16:18)
[2018-05-04] MEDS ORDERED: Loperamide HCl 2 MG CAP PO PRN (16:18)
[2018-05-04] MEDS ORDERED: Artificial Tears 18 DROP/0.9 ML EA EYE PRN (16:18)
[2018-05-04] MEDS ORDERED: Dextrose 50% Abboject 50 ML SYRINGE SLOW IVP PRN (16:18)
[2018-05-04] MEDS ORDERED: Calcium Carbonate 500 MG ChewTAB PO PRN (16:18)
[2018-05-04] MEDS ORDERED: Ondansetron ODT 4 MG TAB PO PRN (16:18)
[2018-05-04] MEDS ORDERED: Sodium Chloride 0.65% Nasal 44 ML BOT EA NARE PRN (16:18)
[2018-05-04 16:29] VITALS: BMI 33.0
[2018-05-04] MEDS ORDERED: Furosemide 40 MG/4 ML VIAL SLOW IVP SCH (16:45)
[2018-05-04] MEDS: Acetaminophen 325 MG TAB PO PRN ×2 (18:10→23:42)
[2018-05-04] MEDS: Diabetic Tussin 200 MG/10 ML UDCUP PO PRN (18:10)
[2018-05-04] MEDS: HumaLOG 300 UNITS/3 ML VIAL SC PRN (18:11)
[2018-05-04] MEDS ORDERED: Diabetic Tussin 200 MG/10 ML UDCUP PO SCH (20:30)
[2018-05-04] MEDS: Famotidine 20 MG TAB PO SCH (20:52)
[2018-05-04] MEDS: Carvedilol 6.25 MG TAB PO SCH (20:52)
[2018-05-04] MEDS: Nitroglycerin 2% Ointment 1 INCH/1 GM Packet TOP SCH (20:55)
[2018-05-04] MEDS: hydrALAZINE 10 MG TAB PO SCH ×2 (20:55→23:41)
[2018-05-04] MEDS: Benzonatate 100 MG CAP PO PRN (23:54)
[2018-05-04] MEDS: Cepastat Lozenges 1 LOZ PO PRN (23:55)
--- NOTE | 2018-05-05 01:49 | CON ---
DATE OF CONSULTATION: PRIMARY CARE DOCTOR: Dr. Nguyễn. PRIMARY MUSKRAT TRAPPER: Dr. Rajat Lu. REASON FOR CARDIOLOGY CONSULTATION: Heart failure. HISTORY OF PRESENT ILLNESS: Mr. Nolasco is a very present 62-year-old male with a significant history of chronic systolic heart failure with cardiomyopathy, hypertension, type 2 diabetes, and hyperlipidemia. The patient was at the Dr. Lu's office today for echocardiogram for worsening of shortness of breath and swelling in the bilateral lower extremity for a few months. After the patient had echocardiogram done, the patient was recommended to go to the emergency department for further evaluation and treatment. After the patient received Lasix IV at the emergency department, the patient is feeling better with improved breathing. However, the patient's cough is getting worse and the patient started having a headache secondary to nitroglycerin sublingual and paste, which was for the abnormal EKG. At this moment also, the patient is complaining about continuous pain to the epigastrium area for 3 weeks, which is mildly better at this moment, but the pain has increased with the coughing. Also, the patient noticed that he gained weight for close to 25 to 30 pounds over the 3 months. The family member noticed that he had to sleep on the recliner due to orthopnea lately. The patient also complained of worsening of dyspnea on exertion when he walk short distances like 100 feet and the patient have to stop and take rest for catching breath. The patient denied any chest pain, discomfort in his chest, palpitation , fluttering in his chest, numbness in the left upper arm, or any other cardiac complaints. When the patient was in the hospital in December 2017, the patient was recommend to have further cardiac evaluation with cardiac catheterization and also the patient was discussed with Dr. Lu in March 2018 at his office about possible cardiac catheterization, both time patient and the patient's family member refused and also the patient refused AICD placement. At the December 2017 admission, the patient status was DNR; however, at this time, the patient would like to discuss with the family members, he would like to be on the full code. Echocardiogram in December 2017 showed EF 30% to 35%, mild to moderate mitral valve regurgitation, mild tricuspid regurgitation, and mildly elevated pulmonary artery pressure. The patient had an echocardiogram was done at Dr. Lu's office today and the result is pending in the computer. PAST MEDICAL HISTORY: 1. Chronic systolic heart failure. 2. Hypertension. 3. Diabetes type 2. 4. Hyperlipidemia. PAST SURGICAL HISTORY: None. FAMILY HISTORY: The patient's mother when the patient was age of 3, so he does not remember. The patient's father's has some type of cancer. One of the patient's son has myocardial infarction and stent placement at the age of 30 years and he also had hypertension. SOCIAL HISTORY: The patient is a . The patient lives with one of his daughters. Also, his whole family and neighbors, he has a good family support. He used to smoke and drink, but he quit around 25 years ago. He does not watch fluid or sold intake. He does not exercise due to dyspnea on exertion lately. ALLERGIES: NO KNOWN DRUG ALLERGY. HOME MEDICATIONS: 1. Glipizide 5 mg every morning. 2. Carvedilol 25 mg twice a day. 3. Januvia 50 mg once a day. 4. Hydralazine 10 mg 3 times a day. 5. Furosemide 40 mg once a day. REVIEW OF SYSTEMS: A 12-point review of systems negative unless otherwise mentioned in the HPI or below. The patient has a poor appetite for 2 weeks due to abdomen bloating and the patient's shortness of breath increases when patient is bending over, but the patient denied any constipation, diarrhea, or blood in stool or urine. PHYSICAL EXAMINATION: VITAL SIGNS: Blood pressure 146/68, temperature 98.9, pulse is 65 and sinus rhythm, and respiratory rate of 22, O2 saturation 95% with the room air. GENERAL: The patient is alert and oriented x4. He is a Omani speaker, but he understand Telugu very well, and not in acute distress. HEENT: Head is normocephalic, atraumatic. Eyes; extraocular muscle movements are intact. ENT and mouth; oral and nasal mucosa are moist without lesion. RESPIRATORY: Clear, but diminished at the bases, especially in the left side, but no wheezing, rales, or rhonchi noted. CARDIOVASCULAR: Regular rate and rhythm with normal S1 and S2. No S3 or S4. No murmurs, heaves, or thrill noted. Arterial pulses present without bruit or thrill. 2+ pulses in upper and lower extremities. The patient has 2 to 3+ pitting edema in the lower extremities. ABDOMEN: The patient's abdomen is distended. Bowel sounds are present. SKIN: Warm and dry. No lesions, rashes, or bruises noted. MUSCULOSKELETAL: The patient is able to move all extremities. The patient denied claudication. PSYCHIATRIC: The patient's mood is appropriate. NEUROLOGIC: The patient is alert and oriented x4. Nonfocal. LABORATORY DATA: WBC 11.3, hemoglobin 12.1, hematocrit 36.8, platelet 242. Sodium 137, potassium 4.3, BUN is 36, creatinine 1.84, glucose 271. AST 16, ALT 15, alkaline phosphatase 145, CK is 149, and troponin is negative, BNP is 592.7. The patient's chest x-ray showed mild perivascular congestion, small right pleural effusion, and no pneumothorax or lobar consolidation. A 12-lead EKG in the ER showed sinus rhythm with old inferior septal ischemia, heart rate 81, but no ST-segment changes or T-wave inversion in V1. ASSESSMENT AND PLAN: 1. Acute on chronic systolic heart failure. At this moment, the patient is really interested to have an AICD placement. We would like to obtain the echocardiogram results from Dr. Lu' office if possible. Dr. Lu will follow up with this patient from tomorrow. At this moment, the patient is on carvedilol 6.25 mg twice a day, Lasix 40 mg IV push twice a day, and lisinopril 2.5 mg once a day. The patient on fluid restriction, 15 mL per day, with low-salt diet. 2. Hypertension. The patient's blood pressure is stable at this moment. We would not like to increase the patient on beta ivette if the patient's vital signs are stable. We would like continue to monitor. 3. Possible ischemic cardiomyopathy. However, since the patient and family continued refusing to have further cardiac evaluation at this moment, we would like to continue to monitor on the telemetry. The patient will be on aspirin 325 mg once a day, beta ivette, and Lovenox. 4. Diabetes type 2. The patient will have before meals and at night blood glucose check, which is managed by the primary care doctor. 5. Chronic cough. When the patient was on the Tessalon before which is prescribed by the primary care doctor, he reported that the medication was working well. We would like to go ahead to order the medicine as needed at this moment and also the patient had Robitussin. Thank you very much for allowing the cardiology service to participate in care of this patient. We will follow along the patient's care team and make further evaluation as needed, and from tomorrow Dr. Lu will follow up with this patient. Job ID: [id number]
[2018-05-05 05:45] LABS: #Eosinphils 0.1 thou/uL (0.0-0.7); #Lymphocytes 1.5 thou/uL (1.20-3.40); #Monocytes 0.7 thou/uL (0.11-0.59); #Neutrophils 6.1 thou/uL (1.40-6.50); %Basophils 0.3 % (0.0-1.0); %Eosinophils 1.4 % (0.0-10.0); %Lymphocytes 17.8 % (21.0-51.0); %Neutrophils 72.5 % (42.0-75.0); Hemoglobin 10.6 g/dL (14.0-18.0); Mean Corpuscular Hemoglobin 29.7 pg (27.0-31.0); Mean Platelet Volume 7.8 fL (7.4-10.4); Platelet Count 168 thou/uL (130-400); Red Blood Cell (RBC) Count 3.56 mill/uL (4.70-6.10); White Blood Cell (WBC) Count 8.4 thou/uL (4.8-10.8)
[2018-05-05 05:59] LABS: ALT (SGPT) 13 U/L (8-55); AST (SGOT) 15 U/L (5-34); Albumin 3.2 g/dL (3.4-4.8); Alkaline Phosphatase 117 U/L (40-150); Anion Gap 9 mmol/L (10-20); BUN (Urea Nitrogen) 34 mg/dL (8.4-25.7); Bilirubin, Total 0.9 mg/dL (0.2-1.2); Calc. Creatinine Clearance 49 mL/min (70-130); Calcium 8.9 mg/dL (7.8-10.44); Carbon Dioxide 29 mmol/L (23-31); Cardiac Risk 4.1 (Less than 4.5); Chloride 105 mmol/L (98-107); Cholesterol 86 mg/dl (< 200 Desired); Estimated GFR-MDRD 37; Globulin 2.9 g/dL (2.4-3.5); Glucose 114 mg/dL (80-115); HDL Cholesterol 21 mg/dL (>60 Neg Risk); LDL Cholesterol, Calculated 35 mg/dL; Magnesium 1.9 mg/dL (1.6-2.6); Potassium 3.5 mmol/L (3.5-5.1); Protein, Total 6.1 g/dL (5.8-8.1); Sodium 139 mmol/L (136-145); Triglycerides 149 mg/dL (Less than 150); Uric Acid 11.2 mg/dL (3.5-7.2)
[2018-05-05 06:08] LABS: Hemoglobin A1c 8.9 % (4.0-6.0)
[2018-05-05] MEDS: Nitroglycerin 2% Ointment 1 INCH/1 GM Packet TOP SCH ×3 (06:38→20:29)
[2018-05-05] MEDS: Furosemide 40 MG/4 ML VIAL SLOW IVP SCH ×2 (06:38→14:38)
--- NOTE | 2018-05-05 07:38 | CON ---
DATE OF CONSULTATION: 05/04/2018 ADDENDUM: Please refer to the note that is already dictated by my nurse practitioner. INDICATION FOR CONSULTATION: A 62-year-old gentleman with congestive heart failure exacerbation. HISTORY OF PRESENT ILLNESS: This very pleasant 62-year-old gentleman has been followed by Dr. Lu for quite some time now. He has been diagnosed with cardiomyopathy with severe decrease in left ventricular systolic function. Ejection fraction has been less than 20% to 25%. He apparently had also a nuclear study, which also showed ejection fraction of 25%. He was seen in the office for an echocardiogram today, apparently that continues to show severe decrease in left ventricular systolic function. In the past, it has been suggested that he undergo cardiac catheterization. He has not been willing to do so in the past, but at this time he thinks that he is more amenable to undergoing the procedure as he does have some history of underlying renal insufficiency and he has been somewhat hesitant to proceed with the cardiac catheterization. He denies any significant chest pain. He mainly complains of chest pain and lower extremity edema. He says he has been watching his fluid, but continues to have lower extremity edema. He is being admitted at this time to undergo diuresis. He may need to be placed on inotropic support in order to increase his overall diuresis and then perhaps he will be a good candidate to undergo a cardiac catheterization. PAST MEDICAL HISTORY: Please refer to the notes dictated by my nurse practitioner. SOCIAL HISTORY: Please refer to the notes dictated by my nurse practitioner. FAMILY HISTORY: Please refer to the notes dictated by my nurse practitioner. ALLERGIES: PLEASE REFER TO THE NOTES DICTATED BY MY NURSE PRACTITIONER. MEDICATIONS: Please refer to the notes dictated by my nurse practitioner. REVIEW OF SYSTEMS: Please refer to the notes dictated by my nurse practitioner. PHYSICAL EXAMINATION: GENERAL: Reveals a very short-statured gentleman, who speaks some Mexican, but mainly speaks Kyrgyz. VITAL SIGNS: His blood pressure is 116/61, early was 188/82. He has been given beta ivette and hydralazine. At this time, the blood pressure has decreased all the way down to 116/61, earlier in the day, it was 146/68. HEENT: Shows the head to be normocephalic and atraumatic. Carotid pulses are present. I did not hear any significant bruits. CHEST: Actually, he has some decreased breath sounds in the bases, but otherwise was unremarkable. I did not hear any significant rales, rhonchi, or wheezing. CARDIOVASCULAR: Reveals a regular rate and rhythm at this time. He has normal S1 and S2. I cannot hear an S3 nor S4. He has a very soft systolic murmur noted at the apex, 1 to 2/6, most likely it is mitral valve regurgitation. ABDOMEN: The abdominal exam shows obesity with positive bowel sounds. No significant organomegaly or masses are noted. Femoral pulses are difficult to palpate, but are present. There is a large pannus. The pedal pulses, I was unable to palpate pedal pulses due to the edema. EXTREMITIES: Lower extremity, 2 to 3+ lower extremity edema is noted. NEUROLOGIC: The patient appears to be fully intact. SKIN: Warm and dry. LABORATORY DATA: Shows WBC of 11.3, hemoglobin 12.1, platelet count 242,000. His BUN was 36 and creatinine 1.84. Blood sugar was 271, potassium is 4.3 with sodium 137. Cardiac enzymes are negative. EKG shows sinus rhythm with nonspecific ST-segment changes, some T-wave changes in the lateral leads with I and aVL, which could be compatible with ischemia. Otherwise, there were no acute changes noted. IMPRESSION: 1. Congestive heart failure exacerbation. The patient with severe decrease in left ventricular systolic function, cardiomyopathy, who may benefit from undergoing cardiac catheterization to determine whether or not this is ischemic in nature and so may improve with revascularization. 2. History of chronic kidney disease, chronic renal insufficiency. Creatinine was 1.84 today. This may be due to decreased perfusion. It is difficult for the patient to diurese with a creatinine of 1.84. His sodium is also low at 137. Again, he may need inotropic support. We will see whether or not he responds to medical management at this time. He has been placed on Lasix 40 mg 3 to 4 times a day, I believe, b.i.d. for now. We will see whether or not he responds, but again due to his edema, he may need to undergo further diuresis prior to a cardiac catheterization. 3. Hypertension. This is under relatively good control after he has been given his medications. Further care of the patient will be by Dr. Lu when he visits with the patient tomorrow. Job ID: [id number]
[2018-05-05 07:58] LABS: Bilirubin Negative (Negative); Blood, Urine Trace (Negative); Clarity CLEAR (Clear); Glucose, Urine (Dipstick) 100 mg/dL (Negative); Leukocyte Negative (Negative); Nitrite Negative (Negative); Protein, Urine (Dipstick) 300 mg/dL (Neg-Trace); Specific Gravity, Urine 1.016 (1.002-1.036); Urobilinogen 0.2 mg/dL (0.2-1.0); pH, Urine 5.5 (5.0-9.0)
[2018-05-05 08:02] LABS: Bacteria/HPF None Seen HPF (None Seen); Hyaline Casts/LPF 0-3 HYALINE CAST LPF (0-3 Hyaline); Pathc Cast-AUWi Flag 0.29 (0-2.49); Squamous Epithelial 0-3 HPF (0-3); WBC/HPF 0-3 HPF (0-3)
[2018-05-05 08:15] LABS: Creatinine, Urine 104.05 mg/dL (63-166)
[2018-05-05] MEDS ORDERED: Enoxaparin Sodium 40 MG/0.4 ML SYRINGE SC SCH (09:00)
[2018-05-05] MEDS: Famotidine 20 MG TAB PO SCH ×2 (09:22→20:14)
[2018-05-05] MEDS: Alogliptin 6.25 MG TAB PO SCH (09:22)
[2018-05-05] MEDS: Lisinopril 2.5 MG TAB PO SCH (09:23)
[2018-05-05] MEDS: Allopurinol 100 MG TAB PO SCH (09:23)
[2018-05-05] MEDS: Benzonatate 100 MG CAP PO PRN ×2 (09:23→20:27)
[2018-05-05] MEDS: Carvedilol 6.25 MG TAB PO SCH ×2 (09:23→20:16)
[2018-05-05] MEDS: Aspirin 325 MG TAB PO SCH (09:23)
[2018-05-05] MEDS: Cepastat Lozenges 1 LOZ PO PRN (09:24)
[2018-05-05] MEDS: hydrALAZINE 10 MG TAB PO SCH ×3 (09:24→20:15)
--- NOTE | 2018-05-05 09:39 | PDOC.PN ---
- Subjective Encounter Start Date: 05/05/18 Encounter Start Time: 07:50 -: old records requested/rev pt feels better, less dyspnea, on room air, less orthopnea, has dry cough Patient seen and examined. No new complaints. No overnight events - Objective Resuscitation Status - Order Detail: 05/04/18 13:45 Resuscitation Status Routine Resuscitation Status: FULL: Full Resuscitation MAR Reviewed: Yes Vital Signs & Weight: Vital Signs (12 hours) Temp Pulse Resp BP BP BP Pulse Ox 05/05/18 07:50 99.1 F 74 16 178/83 H 93 L 05/05/18 03:57 98.9 F 68 17 149/65 H 93 L 05/04/18 23:44 99.7 F H 67 20 144/65 H 93 L 05/04/18 23:41 144/65 H Weight Weight 189 lb 3.2 oz I&O: 05/04/18 05/05/18 05/06/18 06:59 06:59 06:59 Intake Total 1334 Output Total 1000 Balance 334 Result Diagrams: 05/05/18 04:48 05/05/18 04:48 Additional Labs: Accuchecks 05/05/18 05/04/18 05/04/18 05:43 20:36 17:12 POC Glucose 123 H 212 H 181 H EKG Reviewed by me: Yes (nsr) Phys Exam - Physical Examination Constitutional: NAD HEENT: PERRLA, moist MMs, sclera anicteric Neck: no JVD, supple Respiratory: no wheezing, no rhonchi few basal rales Cardiovascular: RRR, no significant murmur, no rub Gastrointestinal: soft, non-tender, no distention, positive bowel sounds Musculoskeletal: pulses present, edema present reduced Neurological: non-focal, normal sensation, moves all 4 limbs Lymphatic: no nodes Psychiatric: normal affect, A&O x 3 Skin: no rash, normal turgor Dx/Plan (1) Acute on chronic systolic ACC/AHA stage C congestive heart failure Code(s): I50.23 - ACUTE ON CHRONIC SYSTOLIC (CONGESTIVE) HEART FAILURE Status : Acute (2) Anemia, normocytic normochromic Code(s): D64.9 - ANEMIA, UNSPECIFIED Status: Chronic (3) CKD (chronic kidney disease) stage 3, GFR 30-59 ml/min Code(s): N18.3 - CHRONIC KIDNEY DISEASE, STAGE 3 (MODERATE) Status: Chronic (4) DM type 2 (diabetes mellitus, type 2) Status: Chronic Comment: (5) HTN (hypertension) Code(s): I10 - ESSENTIAL (PRIMARY) HYPERTENSION Status: Chronic Comment: (6) Hyperuricemia Code(s): E79.0 - HYPERURICEMIA W/O SIGNS OF INFLAM ARTHRIT AND TOPHACEOUS DIS Status: Chronic (7) Obesity (BMI 30.0-34.9) Code(s): E66.9 - OBESITY, UNSPECIFIED Status: Chronic (8) Nephrotic range proteinuria Code(s): R80.9 - PROTEINURIA, UNSPECIFIED Status: Acute - Plan cont current plan of care * medication reviewed as below * symptomatic treatment * continue lasix * cardiology following * will adjust medication * star allopurinol. Review of Systems - Review of Systems Constitutional: negative: fever, chills, sweats, weakness, malaise, other Eyes: negative: Pain, Vision Change, Conjunctivae Inflammation, Eyelid Inflammation, Redness, Other ENT: negative: Ear Pain, Ear Discharge, Nose Pain, Nose Discharge, Nose Congestion, Mouth Pain, Mouth Swelling, Throat Pain, Throat Swelling, Other Respiratory: negative: Cough, Dry, Shortness of Breath, Hemoptysis, SOB with Excertion, Pleuritic Pain, Sputum, Wheezing Cardiovascular: orthopnea, paroxysmal nocturnal dyspnea, edema. negative: chest pain, palpitations, light headedness, other Gastrointestinal: negative: Nausea, Vomiting, Abdominal Pain, Diarrhea, Constipation, Melena, Hematochezia, Other Genitourinary: negative: Dysuria, Frequency, Incontinence, Hematuria, Retention , Other Musculoskeletal: negative: Neck Pain, Shoulder Pain, Arm Pain, Back Pain, Hand Pain, Leg Pain, Foot Pain, Other Skin: negative: Rash, Lesions, Jd, Bruising, Other - Medications/Allergies Allergies/Adverse Reactions: Allergies Allergy/AdvReac Type Severity Reaction Status Date / Time No Known Drug Allergies Allergy Verified 05/04/18 17:00 Medications: Current Medications Acetaminophen (Tylenol) 650 mg PO Q4H PRN PRN Reason: Headache/Fever/Mild Pain (1-3) Last Admin: 05/04/18 23:42 Dose: 650 mg Hydrocodone Bitart/Acetaminophen (Nitro 5/325) 1 tab PO Q4H PRN PRN Reason: Moderate Pain (4-6) Allopurinol (Zyloprim) 100 mg PO DAILY [facility] Last Admin: 05/05/18 09:23 Dose: 100 mg Alogliptin Benzoate (Alogliptin) 12.5 mg PO DAILY [facility] Last Admin: 05/05/18 09:22 Dose: 12.5 mg Artificial Tears (Tears Naturale) 2 drop EA EYE PRN PRN PRN Reason: Dry Eyes Aspirin (Aspirin) 325 mg PO DAILY [facility] Last Admin: 05/05/18 09:23 Dose: 325 mg Benzonatate (Tessalon) 100 mg PO TID PRN PRN Reason: Cough Last Admin: 05/05/18 09:23 Dose: 100 mg Bisacodyl (Dulcolax) 10 mg PO DAILYPRN PRN PRN Reason: Constipation Bisacodyl (Dulcolax) 10 mg [place] DAILYPRN PRN PRN Reason: Constipation Calcium Carbonate (Tums) 1,000 mg PO Q4H PRN PRN Reason: Heartburn or Indigestion Carvedilol (Coreg) 6.25 mg PO BID [facility] Last Admin: 05/05/18 09:23 Dose: 6.25 mg Dextrose/Water (Dextrose 50%) 25 gm SLOW IVP PRN PRN PRN Reason: Hypoglycemia Enoxaparin Sodium (Lovenox) 40 mg SC 0900 [facility] Last Admin: 05/05/18 09:25 Dose: 40 mg Famotidine (Pepcid) 20 mg PO BID [facility] Last Admin: 05/05/18 09:22 Dose: 20 mg Furosemide (Lasix) 40 mg SLOW IVP 0600,1400 [facility] Last Admin: 05/05/18 06:38 Dose: 40 mg Glipizide (Glucotrol Xl) 5 mg PO QAM-WM [facility] Last Admin: 05/05/18 09:24 Dose: 5 mg Glucagon (Glucagon) 1 mg IM PRN PRN PRN Reason: Hypoglycemia Guaifenesin (Robitussin Sf) 200 mg PO Q4H PRN PRN Reason: Cough Last Admin: 05/04/18 18:10 Dose: 200 mg Hydralazine HCl (Apresoline) 10 mg SLOW IVP Q4H PRN PRN Reason: SBP > 180 and HR < 70 Last Admin: 05/04/18 16:52 Dose: 10 mg Hydralazine HCl (Apresoline) 10 mg PO TID [facility] Last Admin: 05/05/18 09:24 Dose: 10 mg Dextrose/Water (D5w) 1,000 mls @ 0 mls/hr IV .Q0M PRN PRN Reason: Hypoglycemia Insulin Human Lispro (Humalog) 0 units SC .MODERATE SLIDING SC PRN PRN Reason: Moderate Correctional Scale Last Admin: 05/04/18 18:11 Dose: 2 unit Insulin Human Lispro (Humalog) 0 units SC .BEDTIME SLIDING SC PRN PRN Reason: Bedtime Correctional Scale Labetalol HCl (Normodyne) 20 mg SLOW IVP Q4H PRN PRN Reason: SBP > 180 and HR >/= 70 Last Admin: 05/04/18 18:37 Dose: 4 ml Lisinopril (Zestril) 2.5 mg PO DAILY [facility] Last Admin: 05/05/18 09:23 Dose: 2.5 mg Loperamide HCl (Imodium) 2 mg PO PRN PRN PRN Reason: Diarrhea/Loose Stools Loratadine (Claritin) 10 mg PO DAILYPRN PRN PRN Reason: Sinus Symptoms Mineral Oil/White Petrolatum (Eucerin Cream) 0 gm TOP BIDPRN PRN PRN Reason: Dry Skin Nitroglycerin (Nitrostat) 0.4 mg SL Q5MIN PRN PRN Reason: Chest Pain Nitroglycerin (Nitro-Bid 2% Ointment) 0.5 inch TOP Q8HR [facility] Last Admin: 05/05/18 06:38 Dose: Not Given Ondansetron HCl (Zofran Odt) 4 mg PO Q6H PRN PRN Reason: Nausea/Vomiting Ondansetron HCl (Zofran) 4 mg IVP Q6H PRN PRN Reason: Nausea/Vomiting Senna/Docusate Sodium (Senokot S) 2 tab PO BID PRN PRN Reason: Constipation Sodium Chloride ([place] Nasal [place] 0.65%) 0 ml EA NARE QIDPRN PRN PRN Reason: Nasal Congestion Sodium Chloride (Flush - Normal Saline) 10 ml IVF Q12HR [facility] Last Admin: 05/05/18 09:24 Dose: 10 ml Sodium Chloride (Flush - Normal Saline) 10 ml IVF PRN PRN PRN Reason: Saline Flush Last Admin: 05/05/18 06:44 Dose: 10 ml Throat Lozenges (Cepastat Lozenges) 1 prudencio PO Q2H PRN PRN Reason: Sore Throat Last Admin: 05/05/18 09:24 Dose: 1 prudencio Zolpidem Tartrate (Ambien) 5 mg PO HSPRN PRN PRN Reason: Insomnia
[2018-05-05] MEDS: HumaLOG 300 UNITS/3 ML VIAL SC PRN (11:36)
--- NOTE | 2018-05-05 12:39 | EKG ---
Test Reason : Blood Pressure : / mmHG Vent. Rate : 081 BPM Atrial Rate : 081 BPM P-R Int : 146 ms QRS Dur : 104 ms QT Int : 374 ms P-R-T Axes : 019 -17 101 degrees QTc Int : 434 ms Normal sinus rhythm T wave abnormality, consider anterolateral ischemia Abnormal ECG Confirmed by OSCAR ORTEGA, HELENA Dominguez ([id number]), supervising editor trailer NICHOLAS CRAVEN ([id number]) on 05/05/2018 12:39:39 PM Referred By: Confirmed By:HLEENA MOORE MD
[2018-05-05] MEDS: Acetaminophen 325 MG TAB PO PRN ×2 (14:43→20:27)
[2018-05-05] MEDS ORDERED: Communication Order-Pharmacy FS SCH (18:30)
[2018-05-05 18:43] LABS: #Eosinphils 0.2 thou/uL (0.0-0.7); #Lymphocytes 1.3 thou/uL (1.20-3.40); #Monocytes 0.6 thou/uL (0.11-0.59); #Neutrophils 4.8 thou/uL (1.40-6.50); %Basophils 0.6 % (0.0-1.0); %Eosinophils 2.3 % (0.0-10.0); %Lymphocytes 18.8 % (21.0-51.0); %Monocytes 9.3 % (0.0-10.0); %Neutrophils 69.1 % (42.0-75.0); Hemoglobin 11.7 g/dL (14.0-18.0); Mean Corpuscular HGB CONC 34.8 g/dL (32.0-36.0); Mean Corpuscular Hemoglobin 29.9 pg (27.0-31.0); Mean Corpuscular Volume 85.9 fL (78.0-98.0); Platelet Count 163 thou/uL (130-400); RBC Distribution Width 12.1 % (11.5-14.5); Red Blood Cell (RBC) Count 3.94 mill/uL (4.70-6.10); White Blood Cell (WBC) Count 6.9 thou/uL (4.8-10.8)
[2018-05-05 19:03] LABS: ALT (SGPT) 15 U/L (8-55); AST (SGOT) 21 U/L (5-34); Albumin 3.5 g/dL (3.4-4.8); Alkaline Phosphatase 127 U/L (40-150); Anion Gap 13 mmol/L (10-20); BUN (Urea Nitrogen) 36 mg/dL (8.4-25.7); Bilirubin, Total 0.8 mg/dL (0.2-1.2); Calc. Creatinine Clearance 42 mL/min (70-130); Calcium 9.2 mg/dL (7.8-10.44); Carbon Dioxide 26 mmol/L (23-31); Chloride 102 mmol/L (98-107); Estimated GFR-MDRD 30; Globulin 3.4 g/dL (2.4-3.5); Glucose 211 mg/dL (80-115); Potassium 3.9 mmol/L (3.5-5.1); Protein, Total 6.9 g/dL (5.8-8.1); Sodium 137 mmol/L (136-145)
[2018-05-05] MEDS: Sodium Chloride 0.9% 1,000 ML IV SCH (20:35)
--- NOTE | 2018-05-05 21:55 | CON ---
DATE OF CONSULTATION: NEPHROLOGY CONSULTATION REASON FOR CONSULTATION: Elevated creatinine. HISTORY OF PRESENT ILLNESS: This is a very pleasant 62-year-old gentleman with a history of coronary artery disease, congestive heart failure, presented to the hospital with a creatinine of 1.8, which has increased to 2.2 since yesterday. The patient's prior baseline was 1.3 in 2017 and has progressively increased to 1.6 and 2.1 in December 2017. Prior baseline in 2017 was less than 1. The patient has a history of congestive heart failure with EF of 25% and cardiac cath was advised. The patient has uncontrolled diabetes since last 8 years and has proteinuria. PAST MEDICAL HISTORY: Significant for hypertension, coronary artery disease, diabetes mellitus, congestive heart failure, ALLERGIES: REVIEWED. MEDICATIONS: Home medication list reviewed. REVIEW OF SYSTEMS: A 15-point review of systems was performed and was negative except for positives noted above. NECK: No swelling or lumps. NOSE: No epistaxis or discharge. EYES: No diplopia or pain. MUSCULOSKELETAL: No joint pain. NEUROPSYCHIATIC SYSTEMS: No suicidal ideation. No ideation. SKIN: Denies any rash or ulcer. CONSTITUTIONAL: No fever or chills. OBJECTIVE: VITAL SIGNS Afebrile, pulse 88, breathing 16, and blood pressure 146/88. See above. Awake, alert, in no acute distress. GENERAL APPEARANCE AND MENTAL STATUS: Fair. HEAD/NECK: Normocephalic. Atraumatic. EYES: EOMI. No deformity. EARS: Clear. No ulcers. NOSE: Intact. No lesions. MOUTH: Clear. No discharge. THROAT: Clear. No exudate. LUNGS: Clear. No crackles. CARDIAC: S1, S2. No rub. ABDOMEN: Benign. Bowel sounds positive. GENITALIA/RECTUM: Mantilla absent. BACK/EXTREMITIES: Lower extremities have edema. NEUROLOGICAL: Alert and motor intact. LABORATORY DATA: Labs showed creatinine is 2.3. ASSESSMENT AND RECOMMENDATIONS: 1. Acute kidney injury with chronic kidney disease, most likely due to progressive diabetic nephropathy in the setting of cardiorenal syndrome. We will do gentle hydration. Agree with DEE and agree with cardiac catheterization. Risks versus benefits of dye exposure were discussed with the patient. The benefits outweigh risk and the patient agreed. 2. Hypertension, stable. 3. Anemia, stable. 4. Medications based on GFR are appropriate. 5. Proteinuria: Continue DEE. 6. No indication for dialysis at this time. The above findings were interpreted with the patient's son who was present during the interview, and all questions were answered. Job ID: [id number]
--- NOTE | 2018-05-05 23:14 | ULT ---
RENAL ULTRASOUND: 05/05/18 PROVIDED CLINICAL HISTORY: Acute kidney injury. FINDINGS: Right kidney measures about 10.9 x 4.7 x 4.3 cm and demonstrates no evidence for hydronephrosis or so lid mass. Left kidney measures about 11.4 x 5.6 x 5.3 cm and demonstrates no evidence for hydronephrosis or gilma id mass. The urinary bladder appears sonographically unremarkable. Bilateral ureteral jets are seen. IMPRESSION: No evidence for hydronephrosis. POS: BRANDEE
[2018-05-06 05:03] LABS: Creatinine, Urine 43.89 mg/dL (63-166)
[2018-05-06] MEDS: Lisinopril 2.5 MG TAB PO SCH (06:17)
[2018-05-06] MEDS: Furosemide 40 MG/4 ML VIAL SLOW IVP SCH ×2 (06:17→15:23)
[2018-05-06] MEDS: Aspirin 325 MG TAB PO SCH (06:17)
[2018-05-06] MEDS: Allopurinol 100 MG TAB PO SCH (06:17)
[2018-05-06] MEDS: Carvedilol 6.25 MG TAB PO SCH ×2 (06:18→20:39)
[2018-05-06] MEDS: Famotidine 20 MG TAB PO SCH ×2 (06:19→20:39)
[2018-05-06] MEDS: Nitroglycerin 2% Ointment 1 INCH/1 GM Packet TOP SCH ×2 (06:19→15:21)
[2018-05-06] MEDS: hydrALAZINE 10 MG TAB PO SCH ×2 (06:20→16:07)
[2018-05-06] MEDS: Loratadine 10 MG TAB PO PRN ×2 (06:21→20:42)
[2018-05-06] MEDS: Diabetic Tussin 200 MG/10 ML UDCUP PO PRN ×2 (06:23→20:43)
[2018-05-06] MEDS: Sodium Chloride 0.9% 1,000 ML IV SCH ×2 (06:25→15:20)
--- NOTE | 2018-05-06 07:59 | CON ---
progress note: 05/05/2018 SUBJECTIVE: Mr. Nolasco feels better today. He has no shortness of breath, but still noted. He is not able to lie flat. OBJECTIVE: VITAL SIGNS: Blood pressure 135/65, pulse 61, temperature afebrile. LUNGS: Crackles noted bilaterally. HEART: Regular rate and rhythm. ABDOMEN: Soft, nontender, nondistended. EXTREMITIES: 1+ pitting edema. PERTINENT LABORATORY DATA: Hemoglobin 10.6, creatinine 1.88. BNP 529. IMPRESSION: 1. Acute on chronic systolic heart failure. 2. Hypertension. 3. Ischemic cardiomyopathy. 4. Chronic kidney disease. 5. Abnormal EKG. RECOMMENDATION: Mr. Nolasco was recently seen about in the office, where he was found to have a low LVEF with the increased shortness of breath present. I would recommend that he proceed to the emergency room. The patient left the office before being seen and presented to the emergency room. He feels better, but still fluid overloaded. We will continue Lasix. I did discuss proceeding with coronary angiography. He has been reluctant in the past, but now they would like to proceed. I discussed proceeding both with Mr. Nolasco as well as his son. Risks included, not limited to the consent. I also discussed drug-coated versus [id number] stent placement. There were no contraindications to drug-coated stent placement to proceed if needed. I did state he was at increased risk of contrast nephropathy and potential dialysis. They are aware of the risks. I also stated we will try and protect his kidneys by reducing the amount of contrast and increasing fluids prior to the angio. If he is able to lie flat, we will proceed with angiography. Job ID: [id number] [facility]
[2018-05-06 09:59] LABS: Anion Gap 13 mmol/L (10-20); BUN (Urea Nitrogen) 32 mg/dL (8.4-25.7); Calc. Creatinine Clearance 46 mL/min (70-130); Carbon Dioxide 28 mmol/L (23-31); Chloride 105 mmol/L (98-107); Estimated GFR-MDRD 34; Glucose 132 mg/dL (80-115); Sodium 142 mmol/L (136-145)
[2018-05-06] MEDS ORDERED: Lidocaine 1% (PF) 30 ML VIAL ONE (10:55)
[2018-05-06] MEDS ORDERED: Nitroglycerin 100MG/250ML BOT 250 ML ONE (10:55)
[2018-05-06] MEDS ORDERED: Heparin 10,000 UNITS/1 ML VIAL ONE (10:55)
[2018-05-06] MEDS ORDERED: Verapamil 5 MG/2 ML VIAL ONE (10:57)
[2018-05-06] MEDS ORDERED: Adenosine 6 MG/2 ML VIAL ONE (10:57)
--- NOTE | 2018-05-06 11:36 | PDOC.PN ---
- Subjective Encounter Start Date: 05/06/18 Encounter Start Time: 08:45 Patient seen and examined. No new complaints. No overnight events - Objective Resuscitation Status - Order Detail: 05/04/18 13:45 Resuscitation Status Routine Resuscitation Status: FULL: Full Resuscitation MAR Reviewed: Yes Vital Signs & Weight: Vital Signs (12 hours) Temp Pulse Resp BP BP BP Pulse Ox 05/06/18 07:40 98.7 F 72 16 154/72 H 96 05/06/18 06:20 70 178/86 H 05/06/18 06:18 178/86 H 05/06/18 06:17 70 178/86 H 05/06/18 03:33 99.1 F 70 14 178/86 H 92 L 05/06/18 00:00 63 164/77 H Weight Weight 188 lb 8 oz I&O: 05/05/18 05/06/18 05/07/18 06:59 06:59 06:59 Intake Total 1334 1359 Output Total 1000 600 Balance 334 759 Result Diagrams: 05/05/18 18:34 05/06/18 09:24 Additional Labs: Accuchecks 05/06/18 05/06/18 05/05/18 11:09 05:54 20:30 POC Glucose 136 H 126 H 219 H 05/05/18 16:55 POC Glucose 196 H EKG Reviewed by me: Yes (nsr) Phys Exam - Physical Examination Constitutional: NAD HEENT: PERRLA, moist MMs, sclera anicteric Neck: no JVD, supple Respiratory: no wheezing, no rhonchi few basal rales Cardiovascular: RRR, no significant murmur, no rub Gastrointestinal: soft, non-tender, no distention, positive bowel sounds Musculoskeletal: pulses present trace edema+ Neurological: non-focal, normal sensation, moves all 4 limbs Psychiatric: normal affect, A&O x 3 Skin: no rash, normal turgor Dx/Plan (1) Acute on chronic systolic ACC/AHA stage C congestive heart failure Code(s): I50.23 - ACUTE ON CHRONIC SYSTOLIC (CONGESTIVE) HEART FAILURE Status : Acute (2) Anemia, normocytic normochromic Code(s): D64.9 - ANEMIA, UNSPECIFIED Status: Chronic (3) CKD (chronic kidney disease) stage 3, GFR 30-59 ml/min Code(s): N18.3 - CHRONIC KIDNEY DISEASE, STAGE 3 (MODERATE) Status: Chronic (4) DM type 2 (diabetes mellitus, type 2) Status: Chronic Comment: (5) HTN (hypertension) Code(s): I10 - ESSENTIAL (PRIMARY) HYPERTENSION Status: Chronic Comment: (6) Hyperuricemia Code(s): E79.0 - HYPERURICEMIA W/O SIGNS OF INFLAM ARTHRIT AND TOPHACEOUS DIS Status: Chronic (7) Obesity (BMI 30.0-34.9) Code(s): E66.9 - OBESITY, UNSPECIFIED Status: Chronic (8) Nephrotic range proteinuria Code(s): R80.9 - PROTEINURIA, UNSPECIFIED Status: Acute - Plan cont current plan of care, plan discussed w/ family * today cardiac cath * medication reviewed as below * symptomatic treatment * continue gentle fluid for renoprotection * monitor renal function * discussed with daughter. Review of Systems - Review of Systems ENT: negative: Ear Pain, Ear Discharge, Nose Pain, Nose Discharge, Nose Congestion, Mouth Pain, Mouth Swelling, Throat Pain, Throat Swelling, Other Respiratory: negative: Cough, Dry, Shortness of Breath, Hemoptysis, SOB with Excertion, Pleuritic Pain, Sputum, Wheezing Cardiovascular: negative: chest pain, palpitations, orthopnea, paroxysmal nocturnal dyspnea, edema, light headedness, other Gastrointestinal: negative: Nausea, Vomiting, Abdominal Pain, Diarrhea, Constipation, Melena, Hematochezia, Other Genitourinary: negative: Dysuria, Frequency, Incontinence, Hematuria, Retention , Other Musculoskeletal: negative: Neck Pain, Shoulder Pain, Arm Pain, Back Pain, Hand Pain, Leg Pain, Foot Pain, Other Skin: negative: Rash, Lesions, Jd, Bruising, Other - Medications/Allergies Allergies/Adverse Reactions: Allergies Allergy/AdvReac Type Severity Reaction Status Date / Time No Known Drug Allergies Allergy Verified 05/04/18 17:00 Medications: Current Medications Acetaminophen (Tylenol) 650 mg PO Q4H PRN PRN Reason: Headache/Fever/Mild Pain (1-3) Last Admin: 05/05/18 20:27 Dose: 650 mg Hydrocodone Bitart/Acetaminophen ([place] 5/325) 1 tab PO Q4H PRN PRN Reason: Moderate Pain (4-6) Allopurinol (Zyloprim) 100 mg PO DAILY [facility] Last Admin: 05/06/18 06:17 Dose: 100 mg Alogliptin Benzoate (Alogliptin) 12.5 mg PO DAILY [facility] Last Admin: 05/05/18 09:22 Dose: 12.5 mg Artificial Tears (Tears Naturale) 2 drop EA EYE PRN PRN PRN Reason: Dry Eyes Aspirin (Aspirin) 325 mg PO DAILY [facility] Last Admin: 05/06/18 06:17 Dose: 325 mg Benzonatate (Tessalon) 100 mg PO TID PRN PRN Reason: Cough Last Admin: 05/05/18 20:27 Dose: 100 mg Bisacodyl (Dulcolax) 10 mg PO DAILYPRN PRN PRN Reason: Constipation Bisacodyl (Dulcolax) 10 mg [place] DAILYPRN PRN PRN Reason: Constipation Calcium Carbonate (Tums) 1,000 mg PO Q4H PRN PRN Reason: Heartburn or Indigestion Carvedilol (Coreg) 6.25 mg PO BID [facility] Last Admin: 05/06/18 06:18 Dose: 6.25 mg Dextrose/Water (Dextrose 50%) 25 gm SLOW IVP PRN PRN PRN Reason: Hypoglycemia Famotidine (Pepcid) 20 mg PO BID [facility] Last Admin: 05/06/18 06:19 Dose: 20 mg Furosemide (Lasix) 40 mg SLOW IVP 0600,1400 [facility] Last Admin: 05/06/18 06:17 Dose: 40 mg Glipizide (Glucotrol Xl) 5 mg PO QAM[facility] Last Admin: 05/05/18 09:24 Dose: 5 mg Glucagon (Glucagon) 1 mg IM PRN PRN PRN Reason: Hypoglycemia Guaifenesin (Robitussin Sf) 200 mg PO Q4H PRN PRN Reason: Cough Last Admin: 05/06/18 06:23 Dose: 200 mg Hydralazine HCl (Apresoline) 10 mg SLOW IVP Q4H PRN PRN Reason: SBP > 180 and HR < 70 Last Admin: 05/04/18 16:52 Dose: 10 mg Hydralazine HCl (Apresoline) 10 mg PO TID [facility] Last Admin: 05/06/18 06:20 Dose: 10 mg Dextrose/Water (D5w) 1,000 mls @ 0 mls/hr IV .Q0M PRN PRN Reason: Hypoglycemia Sodium Chloride (Normal Saline 0.9%) 1,000 mls @ 100 mls/hr IV .Q10H [facility] Last Admin: 05/06/18 06:25 Dose: 1,000 mls Insulin Human Lispro (Humalog) 0 units SC .MODERATE SLIDING SC PRN PRN Reason: Moderate Correctional Scale Last Admin: 05/05/18 11:36 Dose: 4 unit Insulin Human Lispro (Humalog) 0 units SC .BEDTIME SLIDING SC PRN PRN Reason: Bedtime Correctional Scale Labetalol HCl (Normodyne) 20 mg SLOW IVP Q4H PRN PRN Reason: SBP > 180 and HR >/= 70 Last Admin: 05/04/18 18:37 Dose: 4 ml Lisinopril (Zestril) 2.5 mg PO DAILY [facility] Last Admin: 05/06/18 06:17 Dose: 2.5 mg Loperamide HCl (Imodium) 2 mg PO PRN PRN PRN Reason: Diarrhea/Loose Stools Loratadine (Claritin) 10 mg PO DAILYPRN PRN PRN Reason: Sinus Symptoms Last Admin: 05/06/18 06:21 Dose: 10 mg Mineral Oil/White Petrolatum (Eucerin Cream) 0 gm TOP BIDPRN PRN PRN Reason: Dry Skin Miscellaneous Information (Communication Order-Pharmacy) 0 each FS ONE [facility] Stop: 05/06/18 18:31 Nitroglycerin (Nitrostat) 0.4 mg SL Q5MIN PRN PRN Reason: Chest Pain Nitroglycerin (Nitro-Bid 2% Ointment) 0.5 inch TOP Q8HR [facility] Last Admin: 05/06/18 06:19 Dose: 0.5 inch Ondansetron HCl (Zofran Odt) 4 mg PO Q6H PRN PRN Reason: Nausea/Vomiting Ondansetron HCl (Zofran) 4 mg IVP Q6H PRN PRN Reason: Nausea/Vomiting Senna/Docusate Sodium (Senokot S) 2 tab PO BID PRN PRN Reason: Constipation Sodium Chloride ([place] Nasal [place] 0.65%) 0 ml EA NARE QIDPRN PRN PRN Reason: Nasal Congestion Sodium Chloride (Flush - Normal Saline) 10 ml IVF Q12HR [facility] Last Admin: 05/06/18 06:17 Dose: 10 ml Sodium Chloride (Flush - Normal Saline) 10 ml IVF PRN PRN PRN Reason: Saline Flush Last Admin: 05/05/18 06:44 Dose: 10 ml Throat Lozenges (Cepastat Lozenges) 1 prudencio PO Q2H PRN PRN Reason: Sore Throat Last Admin: 05/05/18 09:24 Dose: 1 prudencio Zolpidem Tartrate (Ambien) 5 mg PO HSPRN PRN PRN Reason: Insomnia
[2018-05-06] MEDS: Alogliptin 6.25 MG TAB PO SCH (12:01)
[2018-05-06] MEDS ORDERED: Labetalol HCl 100 MG/20 ML VIAL ONE (14:12)
[2018-05-06] MEDS ORDERED: hydrALAZINE 20 MG/ML VIAL ONE (14:12)
[2018-05-06] MEDS ORDERED: Fentanyl 100 MCG/2 ML VIAL ONE (14:13)
[2018-05-06] MEDS ORDERED: Midazolam HCl 2 mg/2 ml Vial ONE (14:13)
[2018-05-06] MEDS ORDERED: Iopamidol 370 76% 100 ML VIAL ONE (15:13)
[2018-05-06] MEDS ORDERED: Nitroglycerin 0.4 MG TAB (25 Tab Bottle) SL PRN (15:28)
[2018-05-06] MEDS ORDERED: Acetaminophen/Codeine 30-300mg Tablet PO PRN ×2 (15:28)
[2018-05-06] MEDS ORDERED: traMADol HCl 50 MG TAB PO PRN (15:28)
[2018-05-06] MEDS ORDERED: Sodium Chloride 0.9% 200 ML IV SCH (15:30)
[2018-05-06] MEDS ORDERED: Sodium Chloride 0.9% 1,000 ML IV SCH (15:30)
[2018-05-06] MEDS ORDERED: hydrALAZINE 25 MG TAB PO SCH (15:45)
[2018-05-06] MEDS: Acetaminophen 325 MG TAB PO PRN (16:00)
--- NOTE | 2018-05-06 18:44 | PRG ---
DATE OF SERVICE: 05/06/2018 SUBJECTIVE: A 62-year-old male, being seen for acute kidney injury. The patient denies nausea, vomiting, or chest pain. OBJECTIVE: CONSTITUTIONAL: The patient is awake and alert. VITAL SIGNS: Afebrile, pulse 64, breathing 16, blood pressure 154/72. GENERAL APPEARANCE AND MENTAL STATUS: Fair. HEAD/NECK: Normocephalic. Atraumatic. EYES: EOMI. No deformity. EARS: Clear. No ulcers. NOSE: Intact. No lesions. MOUTH: Clear. No discharge. THROAT: Clear. No exudate. LUNGS: Clear. No crackles. CARDIAC: S1, S2. No rub. ABDOMEN: Benign. Bowel sounds positive. GENITALIA/RECTUM: Mantilla absent. BACK/EXTREMITIES: Edema 0+. NEUROLOGICAL: Alert and motor intact. SKIN: LYMPHATICS: LABORATORY DATA: Labs show hemoglobin 11.2. Creatinine is 2.02. ASSESSMENT AND PLAN: 1. Acute kidney injury. 2. Chronic kidney disease, stage 3, stable. 3. Hypertension, stable. 4. Anemia, stable. 5. Medications based on GFR are appropriate. 6. . Job ID: [id number]
[2018-05-06] MEDS: hydrALAZINE 25 MG TAB PO SCH (20:38)
[2018-05-06] MEDS: Cepastat Lozenges 1 LOZ PO PRN (20:43)
[2018-05-07] MEDS: Sodium Chloride 0.9% 1,000 ML IV SCH ×3 (04:29→22:04)
[2018-05-07 05:44] LABS: Anion Gap 16 mmol/L (10-20); BUN (Urea Nitrogen) 31 mg/dL (8.4-25.7); Calc. Creatinine Clearance 45 mL/min (70-130); Calcium 8.9 mg/dL (7.8-10.44); Carbon Dioxide 25 mmol/L (23-31); Chloride 105 mmol/L (98-107); Estimated GFR-MDRD 34; Glucose 124 mg/dL (80-115); Potassium 3.7 mmol/L (3.5-5.1); Sodium 142 mmol/L (136-145)
[2018-05-07] MEDS: Diabetic Tussin 200 MG/10 ML UDCUP PO PRN (05:54)
[2018-05-07] MEDS: Furosemide 40 MG/4 ML VIAL SLOW IVP SCH ×2 (05:55→14:57)
[2018-05-07] MEDS: Cepastat Lozenges 1 LOZ PO PRN (05:56)
[2018-05-07] MEDS: Alogliptin 6.25 MG TAB PO SCH (08:31)
[2018-05-07] MEDS: Carvedilol 6.25 MG TAB PO SCH ×2 (08:32→20:22)
[2018-05-07] MEDS: Aspirin 325 MG TAB PO SCH (08:33)
[2018-05-07] MEDS: Lisinopril 2.5 MG TAB PO SCH (08:33)
[2018-05-07] MEDS: hydrALAZINE 25 MG TAB PO SCH ×3 (08:33→20:22)
[2018-05-07] MEDS: Allopurinol 100 MG TAB PO SCH (08:33)
[2018-05-07] MEDS: Famotidine 20 MG TAB PO SCH ×2 (08:33→20:21)
--- NOTE | 2018-05-07 11:14 | PDOC.PN ---
- Subjective Encounter Start Date: 05/07/18 Encounter Start Time: 08:00 Patient seen and examined. No new complaints. No overnight events - Objective Resuscitation Status - Order Detail: 05/04/18 13:45 Resuscitation Status Routine Resuscitation Status: FULL: Full Resuscitation MAR Reviewed: Yes Vital Signs & Weight: Vital Signs (12 hours) Temp Pulse Resp BP BP BP Pulse Ox 05/07/18 07:11 98.7 F 69 18 167/80 H 96 05/07/18 03:36 98.5 F 78 16 135/85 92 L 05/06/18 23:48 69 154/69 H Weight Weight 185 lb I&O: 05/06/18 05/07/18 05/08/18 06:59 06:59 06:59 Intake Total 1359 2078 Output Total 600 1850 Balance 759 228 Result Diagrams: 05/05/18 18:34 05/07/18 04:25 Additional Labs: Accuchecks 05/07/18 05/07/18 05/06/18 10:59 05:51 20:27 POC Glucose 233 H 126 H 136 H 05/06/18 05/06/18 16:46 11:09 POC Glucose 123 H 136 H EKG Reviewed by me: Yes (nsr) Phys Exam - Physical Examination Constitutional: NAD HEENT: PERRLA, moist MMs, sclera anicteric Neck: no JVD, supple Respiratory: no wheezing, no rales, no rhonchi Cardiovascular: RRR, no significant murmur, no rub Gastrointestinal: soft, non-tender, no distention, positive bowel sounds Musculoskeletal: no edema, pulses present Neurological: non-focal, normal sensation, moves all 4 limbs Lymphatic: no nodes Psychiatric: normal affect, A&O x 3 Skin: no rash, normal turgor Dx/Plan (1) Acute on chronic systolic ACC/AHA stage C congestive heart failure Code(s): I50.23 - ACUTE ON CHRONIC SYSTOLIC (CONGESTIVE) HEART FAILURE Status : Acute (2) Anemia, normocytic normochromic Code(s): D64.9 - ANEMIA, UNSPECIFIED Status: Chronic (3) CKD (chronic kidney disease) stage 3, GFR 30-59 ml/min Code(s): N18.3 - CHRONIC KIDNEY DISEASE, STAGE 3 (MODERATE) Status: Chronic (4) DM type 2 (diabetes mellitus, type 2) Status: Chronic Comment: (5) HTN (hypertension) Code(s): I10 - ESSENTIAL (PRIMARY) HYPERTENSION Status: Chronic Comment: (6) Hyperuricemia Code(s): E79.0 - HYPERURICEMIA W/O SIGNS OF INFLAM ARTHRIT AND TOPHACEOUS DIS Status: Chronic (7) Obesity (BMI 30.0-34.9) Code(s): E66.9 - OBESITY, UNSPECIFIED Status: Chronic (8) Nephrotic range proteinuria Code(s): R80.9 - PROTEINURIA, UNSPECIFIED Status: Acute - Plan cont current plan of care, plan discussed w/ family * medication reviewed as below * symptomatic treatment * today will adjust BP medication * discussed with daughter * overall stable * expecting discharge soon. Review of Systems - Review of Systems ENT: negative: Ear Pain, Ear Discharge, Nose Pain, Nose Discharge, Nose Congestion, Mouth Pain, Mouth Swelling, Throat Pain, Throat Swelling, Other Respiratory: negative: Cough, Dry, Shortness of Breath, Hemoptysis, SOB with Excertion, Pleuritic Pain, Sputum, Wheezing Cardiovascular: negative: chest pain, palpitations, orthopnea, paroxysmal nocturnal dyspnea, edema, light headedness, other Gastrointestinal: negative: Nausea, Vomiting, Abdominal Pain, Diarrhea, Constipation, Melena, Hematochezia, Other Genitourinary: negative: Dysuria, Frequency, Incontinence, Hematuria, Retention , Other Musculoskeletal: negative: Neck Pain, Shoulder Pain, Arm Pain, Back Pain, Hand Pain, Leg Pain, Foot Pain, Other - Medications/Allergies Allergies/Adverse Reactions: Allergies Allergy/AdvReac Type Severity Reaction Status Date / Time No Known Drug Allergies Allergy Verified 05/04/18 17:00 Medications: Current Medications Acetaminophen (Tylenol) 650 mg PO Q4H PRN PRN Reason: Headache/Fever/Mild Pain (1-3) Last Admin: 05/06/18 16:00 Dose: 650 mg Acetaminophen/Codeine Phosphate (Tylenol #3) 1 tab PO Q4H PRN PRN Reason: Mild Pain (1-3) Acetaminophen/Codeine Phosphate (Tylenol #3) 2 tab PO Q4H PRN PRN Reason: Moderate Pain (4-6) Hydrocodone Bitart/Acetaminophen ([place] 5/325) 1 tab PO Q4H PRN PRN Reason: Moderate Pain (4-6) Allopurinol (Zyloprim) 100 mg PO DAILY [facility] [place] Last Admin: 05/07/18 08:33 Dose: 100 mg Alogliptin Benzoate (Alogliptin) 12.5 mg PO DAILY [facility] [place] Last Admin: 05/07/18 08:31 Dose: 12.5 mg Artificial Tears (Tears Naturale) 2 drop EA EYE PRN PRN PRN Reason: Dry Eyes Aspirin (Aspirin) 325 mg PO DAILY [facility] [place] Last Admin: 05/07/18 08:33 Dose: 325 mg Benzonatate (Tessalon) 100 mg PO TID PRN PRN Reason: Cough Last Admin: 05/05/18 20:27 Dose: 100 mg Bisacodyl (Dulcolax) 10 mg PO DAILYPRN PRN PRN Reason: Constipation Bisacodyl (Dulcolax) 10 mg [place] DAILYPRN PRN PRN Reason: Constipation Calcium Carbonate (Tums) 1,000 mg PO Q4H PRN PRN Reason: Heartburn or Indigestion Carvedilol (Coreg) 6.25 mg PO BID [facility] [place] Last Admin: 05/07/18 08:32 Dose: 6.25 mg Dextrose/Water (Dextrose 50%) 25 gm SLOW IVP PRN PRN PRN Reason: Hypoglycemia Famotidine (Pepcid) 20 mg PO BID [facility] [place] Last Admin: 05/07/18 08:33 Dose: 20 mg Furosemide (Lasix) 40 mg SLOW IVP 0600,1400 [facility] [place] Last Admin: 05/07/18 05:55 Dose: 40 mg Glipizide (Glucotrol Xl) 5 mg PO QA-[facility] Last Admin: 05/07/18 08:33 Dose: 5 mg Glucagon (Glucagon) 1 mg IM PRN PRN PRN Reason: Hypoglycemia Guaifenesin (Robitussin Sf) 200 mg PO Q4H PRN PRN Reason: Cough Last Admin: 05/07/18 05:54 Dose: 200 mg Hydralazine HCl (Apresoline) 10 mg SLOW IVP Q4H PRN PRN Reason: SBP > 180 and HR < 70 Last Admin: 05/04/18 16:52 Dose: 10 mg Hydralazine HCl (Apresoline) 25 mg PO TID [facility] [place] Last Admin: 05/07/18 08:33 Dose: 25 mg Dextrose/Water (D5w) 1,000 mls @ 0 mls/hr IV .Q0M PRN PRN Reason: Hypoglycemia Sodium Chloride (Normal Saline 0.9%) 1,000 mls @ 100 mls/hr IV .Q10H [facility] [place] Last Admin: 05/07/18 08:39 Dose: Not Given Insulin Human Lispro (Humalog) 0 units SC .MODERATE SLIDING SC PRN PRN Reason: Moderate Correctional Scale Last Admin: 05/05/18 11:36 Dose: 4 unit Insulin Human Lispro (Humalog) 0 units SC .BEDTIME SLIDING SC PRN PRN Reason: Bedtime Correctional Scale Isosorbide Mononitrate (Imdur Er) 30 mg PO DAILY [facility] [place] Last Admin: 05/07/18 08:34 Dose: 30 mg Labetalol HCl (Normodyne) 20 mg SLOW IVP Q4H PRN PRN Reason: SBP > 180 and HR >/= 70 Last Admin: 05/04/18 18:37 Dose: 4 ml Lisinopril (Zestril) 2.5 mg PO DAILY [facility] [place] Last Admin: 05/07/18 08:33 Dose: 2.5 mg Loperamide HCl (Imodium) 2 mg PO PRN PRN PRN Reason: Diarrhea/Loose Stools Loratadine (Claritin) 10 mg PO DAILYPRN PRN PRN Reason: Sinus Symptoms Last Admin: 05/06/18 20:42 Dose: 10 mg Mineral Oil/White Petrolatum (Eucerin Cream) 0 gm TOP BIDPRN PRN PRN Reason: Dry Skin Nitroglycerin (Nitrostat) 0.4 mg SL Q5MIN PRN PRN Reason: Chest Pain Nitroglycerin (Nitrostat) 0.4 mg SL Q5MIN PRN PRN Reason: Chest Pain Ondansetron HCl (Zofran Odt) 4 mg PO Q6H PRN PRN Reason: Nausea/Vomiting Ondansetron HCl (Zofran) 4 mg IVP Q6H PRN PRN Reason: Nausea/Vomiting Senna/Docusate Sodium (Senokot S) 2 tab PO BID PRN PRN Reason: Constipation Sodium Chloride ([place] Nasal [place] 0.65%) 0 ml EA NARE QIDPRN PRN PRN Reason: Nasal Congestion Sodium Chloride (Flush - Normal Saline) 10 ml IVF Q12HR [facility] [place] Last Admin: 12/21/18 08:34 Dose: 10 ml Sodium Chloride (Flush - Normal Saline) 10 ml IVF PRN PRN PRN Reason: Saline Flush Last Admin: 05/07/18 05:55 Dose: 10 ml Throat Lozenges (Cepastat Lozenges) 1 prudencio PO Q2H PRN PRN Reason: Sore Throat Last Admin: 05/07/18 05:56 Dose: 1 prudencio Tramadol HCl (Ultram) 50 mg PO Q6H PRN PRN Reason: Moderate Pain (4-6) Zolpidem Tartrate (Ambien) 5 mg PO HSPRN PRN PRN Reason: Insomnia
[2018-05-07] MEDS ORDERED: Amlodipine 5 MG TAB PO SCH (13:45)
--- NOTE | 2018-05-07 13:49 | PDOC.CTH ---
Cardiology Progress Note - Subjective No current complaints. BP strill elevated. Moderate CAD noted on recent angio - Objective Vital Signs Temp Pulse Resp BP BP Pulse Ox 05/07/18 11:36 99.1 F 69 18 162/74 H 96 05/07/18 07:11 98.7 F 69 18 167/80 H 96 05/07/18 03:36 98.5 F 78 16 135/85 92 L Weight 185 lb 05/06/18 05/07/18 05/08/18 06:59 06:59 06:59 Intake Total 1359 2078 Output Total 600 1850 Balance 759 228 - Physical Examination General/Neuro: alert & oriented x3, NAD Neck: carotid US brisk, no JVD present Lungs: CTA Heart: PMI normal, RRR Abdomen: NT/ND, soft - Labs Result Diagrams: 05/05/18 18:34 05/07/18 04:25 Troponin/CKMB Troponin I Less than 0.010 ng/mL (< 0.028) 05/04/18 19:35 - Assessment/Plan Non-ishcemic CM CAD HTN Main issue is malignant HTN Will need op sleep study Add Norvas Would like recommendations on increasing AACEI with nephrology HCTZ not a viable option given increase creatinine Once BP stble, ok for dc with op fu
[2018-05-08] MEDS: Furosemide 40 MG/4 ML VIAL SLOW IVP SCH ×2 (05:19→15:16)
[2018-05-08] MEDS: Diabetic Tussin 200 MG/10 ML UDCUP PO PRN ×2 (05:24→08:46)
[2018-05-08] MEDS ORDERED: Lisinopril 2.5 MG TAB PO SCH (06:53)
[2018-05-08] MEDS ORDERED: Carvedilol 6.25 MG TAB PO SCH ×3 (06:53→11:00)
[2018-05-08] MEDS: Sodium Chloride 0.9% 1,000 ML IV SCH (08:42)
[2018-05-08] MEDS: Alogliptin 6.25 MG TAB PO SCH (08:43)
[2018-05-08] MEDS: hydrALAZINE 25 MG TAB PO SCH ×2 (08:44→15:14)
[2018-05-08] MEDS: Allopurinol 100 MG TAB PO SCH (08:44)
[2018-05-08] MEDS: Aspirin 325 MG TAB PO SCH (08:45)
[2018-05-08] MEDS: Famotidine 20 MG TAB PO SCH (08:45)
[2018-05-08] MEDS ORDERED: Amlodipine 5 MG TAB PO SCH ×2 (09:00)
[2018-05-08] MEDS ORDERED: Amlodipine 10 MG TAB PO SCH (09:00)
[2018-05-08] MEDS ORDERED: Lisinopril 5 MG TAB PO SCH (09:00)
--- NOTE | 2018-05-08 09:50 | DIS ---
DATE OF ADMISSION: 05/04/2018 DATE OF DISCHARGE: 05/08/2018 PRIMARY CARE PHYSICIAN: Dr. Edward Nguyễn. DISCHARGE DISPOSITION: Home. PRIMARY DISCHARGE DIAGNOSES: 1. Acute on chronic systolic ACC stage C congestive heart failure. 2. Nephrotic-range proteinuria. 3. Status post cardiac cath. 4. Hyperuricemia. 5. Hypertensive urgency. SECONDARY DISCHARGE DIAGNOSES: 1. Obesity. 2. Hypertension. 3. Diabetes type 2. 4. Chronic kidney disease stage 3. 5. Normocytic normochromic anemia. 6. Chronic systolic heart failure. PRIMARY PROCEDURE/OPERATION: Cardiac catheterization was performed by Dr. Lu. RADIOLOGICAL INVESTIGATION: Chest x-ray showed pulmonary vascular congestion. Renal ultrasound was unremarkable. SIGNIFICANT LABORATORY DATA: WBC 6.9, hemoglobin 11.7, platelet 163. Sodium 137, potassium 3.9, BUN 36, creatinine 2.23, calcium 9.2. LFT normal. TSH 1.45. Urinalysis suggestive of nephrotic range of proteinuria. DISCHARGE MEDICATIONS: 1. Coreg 25 mg p.o. b.i.d. 2. Glipizide XL 5 mg daily. 3. Januvia 50 mg daily. 4. Allopurinol 100 mg daily. 5. Norvasc 10 mg daily. 6. Lasix 40 mg b.i.d. 7. Hydralazine 25 mg t.i.d. 8. Imdur 30 mg daily. 9. Lisinopril 5 mg p.o. daily. CONTRAINDICATION: None. CODE STATUS: Full code. INPATIENT JEWELRY APPRAISER: Dr. Lu was following while in the hospital. Dr. Shay was following while in hospital. TEST RESULTS PENDING ON DISCHARGE: None. ALLERGIES: NO KNOWN DRUG ALLERGIES. DISCHARGE PLAN: Post hospital, the patient will follow up with primary care physician in next week. The patient is also advised to follow up with Dr. Shay next week. HOSPITAL COURSE: A 62-year-old male, who was sent from [facility]iology [facility] for increasing shortness of breath as well as elevated blood pressure. On admission, the patient was having hypertensive urgency that was controlled with parenteral medication. The patient was also suffering from acute on chronic systolic heart failure based on chest x-ray. The patient was admitted to telemetry floor and we treated him with Lasix. The patient also has nephrotic range of proteinuria. Cardiology was consulted and they recommended to do cardiac cath during this admission. Nephrology was consulted for renal protection for cardiac cath and the patient was given IV fluid during lexie-procedure. Because of that, the patient's blood pressure was out of control. Initially, his blood pressure was well controlled with medication, but when the patient was started getting IV fluid, his blood pressure was getting worse. We adjusted above-mentioned blood pressure medication. We also started allopurinol for hyperuricemia. Norvasc and hydralazine are new medications. Lasix increased to double dose, and lisinopril also added during this admission. We are requesting this patient to follow up with primary care physician next week as well as Dr. Shay next week and keep diary of blood sugar and blood pressure at home, so he can have further adjustment done as an outpatient basis. At this point, the patient is on room air. He is euvolemic. He is ambulatory, tolerating p.o. well. Dietary education, fluid restriction, and heart failure education were given to him. The patient is also educated about that if blood pressure gets very high, then he can take extra hydralazine medication at home. PHYSICAL EXAMINATION: The patient is seen and examined at bedside today. VITAL SIGNS: Currently, temperature is 98, pulse 66, blood pressure 148/67, respiratory rate 20, saturation 95% on room air, weight 184 pounds. GENERAL: The patient is currently alert, awake. No obvious acute distress. HEAD: Normocephalic and atraumatic. EYES: Pupils are round and reactive to light. Extraocular muscle intact. ENT: Oropharynx within normal limits. Moist mucous membranes. No oral lesion. No pharyngeal erythema. No exudate. NECK: Supple. No JVD. No thyromegaly. No carotid bruit. No jugular venous distention. LUNGS: Clear to auscultation without any rhonchi or rales. CARDIAC: S1 and S2 regular without any murmur. ABDOMEN: Soft and benign without any tenderness. EXTREMITIES: No edema. NEUROLOGIC: Nonfocal examination. The patient is medically stable for discharge today. Job ID: [id number]
[2018-05-08] MEDS ORDERED: hydrALAZINE 25 MG TAB PO SCH (11:00)
[2018-05-08 12:06] LABS: Anion Gap 12 mmol/L (10-20); BUN (Urea Nitrogen) 33 mg/dL (8.4-25.7); Calc. Creatinine Clearance 43 mL/min (70-130); Calcium 9.1 mg/dL (7.8-10.44); Carbon Dioxide 29 mmol/L (23-31); Chloride 100 mmol/L (98-107); Estimated GFR-MDRD 32; Glucose 158 mg/dL (80-115); Potassium 3.8 mmol/L (3.5-5.1); Sodium 137 mmol/L (136-145)
[2018-05-08 12:35] LABS: Hemoglobin 11.9 g/dL (14.0-18.0)
[2018-05-08 13:42] VITALS: BP 122/74; TEMP 98.1
--- NOTE | 2018-05-08 14:14 | PRG ---
DATE OF SERVICE: 05/08/2018 SUBJECTIVE: A 62-year-old gentleman, being seen for acute kidney injury. The patient denies any nausea, vomiting, or chest pain. OBJECTIVE: CONSTITUTIONAL: The patient is awake and alert. VITAL SIGNS: Temperature afebrile, pulse 67, breathing 16, and blood pressure 163/74. GENERAL APPEARANCE AND MENTAL STATUS: Fair. HEAD/NECK: Normocephalic. Atraumatic. EYES: EOMI. No deformity. EARS: Clear. No ulcers. NOSE: Intact. No lesions. MOUTH: Clear. No discharge. THROAT: Clear. No exudate. LUNGS: Clear. No crackles. CARDIAC: S1, S2. No rub. ABDOMEN: Benign. Bowel sounds positive. GENITALIA/RECTUM: Mantilla absent. BACK/EXTREMITIES: Edema 0+. NEUROLOGICAL: Alert and motor intact. LABORATORY DATA: Hemoglobin 11.7. Creatinine 2.1. ASSESSMENT AND PLAN: 1. Chronic kidney disease stage 3, stable. 2. Hypertension, . 3. Anemia, stable. 4. Medications based on GFR are appropriate. Job ID: [id number]
[2018-05-08] MEDS ORDERED: Carvedilol 25 MG TAB PO SCH (21:00)
--- NOTE | 2018-05-09 11:25 | PRG ---
DATE OF SERVICE: 05/07/2018 SUBJECTIVE: A 62-year-old gentleman, being seen for acute kidney injury. The patient denies any nausea, vomiting, or chest pain. OBJECTIVE: GENERAL: The patient is awake, alert, in no acute distress. VITAL SIGNS: , breathing 16, blood pressure . GENERAL APPEARANCE AND MENTAL STATUS: Fair. HEAD/NECK: Normocephalic. Atraumatic. EYES: EOMI. No deformity. EARS: Clear. No ulcers. NOSE: Intact. No lesions. MOUTH: Clear. No discharge. THROAT: Clear. No exudate. LUNGS: Clear. No crackles. CARDIAC: S1, S2. No rub. ABDOMEN: Benign. Bowel sounds positive. GENITALIA/RECTUM: Mantilla absent. BACK/EXTREMITIES: Edema 0+. NEUROLOGICAL: Alert and motor intact. LABORATORY DATA: Labs show hemoglobin 11.7. Creatinine . ASSESSMENT: 1. Stage 3 chronic kidney disease, stable. 2. Hypertension, stable. 3. Anemia, stable. 4. No indication for dialysis. Job ID: [id number]
== END 2018-05-08 15:19 | disposition home or self-care (01) | DRG 286 ==
LOC: ERS 11:18 → ERHOLD 12:45 → 2NO 16:10
PROVIDERS: ADMIT Internal Medicine; ATTEND Internal Medicine
PROC: 4A023N7 Measurement of Cardiac Sampling and Pressure, Left Heart, Percutaneous Approach (ICD-10-PCS; principal; 2018-05-06)
PROC: B2151ZZ Fluoroscopy of Left Heart using Low Osmolar Contrast (ICD-10-PCS; 2018-05-06)
PROC: B2111ZZ Fluoroscopy of Multiple Coronary Arteries using Low Osmolar Contrast (ICD-10-PCS; 2018-05-06)
DX: I13.0 Hypertensive heart and chronic kidney disease with heart failure and stage 1 through stage 4 chronic kidney disease, or unspecified chronic kidney disease (principal); I50.23 Acute on chronic systolic (congestive) heart failure; N17.9 Acute kidney failure, unspecified; I16.0 Hypertensive urgency; N18.3 Chronic kidney disease, stage 3 (moderate); E66.9 Obesity, unspecified; I25.5 Ischemic cardiomyopathy; R80.9 Proteinuria, unspecified; D64.9 Anemia, unspecified; E11.22 Type 2 diabetes mellitus with diabetic chronic kidney disease; E78.5 Hyperlipidemia, unspecified; Z79.899 Other long term (current) drug therapy; Z79.84 Long term (current) use of oral hypoglycemic drugs; I25.10 Atherosclerotic heart disease of native coronary artery without angina pectoris; Z66 Do not resuscitate; Z87.891 Personal history of nicotine dependence; R05 Cough; Z68.33 Body mass index [BMI] 33.0-33.9, adult
CPT/HCPCS: 36415; 36416; 71045; 76770; 76942; 80048; 80053; 80061; 81001; 82550; 82570; 83036; 83735; 83880; 84156; 84443; 84484; 84550; 85014; 85018; 85025; 93005; 93458; 93798; 96374; 96375; 99152; C1769; J0153; J0360; J1644; J1650; J1940; J2001; J2250; J3010; J3490

== ENCOUNTER 2018-09-15 09:51 | Day surgery (SDC) | payer OTHER ==
[2018-09-14 11:55] VITALS: BMI 27.4
[2018-09-15 10:32] LABS: #Basophils 0.1 thou/uL (0.0-0.2); #Eosinphils 0.1 thou/uL (0.0-0.7); #Lymphocytes 2.4 thou/uL (1.20-3.40); #Monocytes 0.6 thou/uL (0.11-0.59); #Neutrophils 5.6 thou/uL (1.40-6.50); %Basophils 0.6 % (0.0-1.0); %Eosinophils 1.6 % (0.0-10.0); %Lymphocytes 27.1 % (21.0-51.0); %Monocytes 6.6 % (0.0-10.0); %Neutrophils 64.1 % (42.0-75.0); Hemoglobin 10.5 g/dL (14.0-18.0); Mean Corpuscular HGB CONC 35.6 g/dL (32.0-36.0); Mean Corpuscular Volume 84.3 fL (78.0-98.0); Mean Platelet Volume 6.8 fL (7.4-10.4); Platelet Count 198 thou/uL (130-400); RBC Distribution Width 12.9 % (11.5-14.5); White Blood Cell (WBC) Count 8.8 thou/uL (4.8-10.8)
[2018-09-15 10:38] LABS: PTT 30.3 SEC (22.9-36.1); Prothrombin Time 13.1 SEC (12.0-14.7)
[2018-09-15 10:53] LABS: Anion Gap 12 mmol/L (10-20); BUN (Urea Nitrogen) 30 mg/dL (8.4-25.7); Calc. Creatinine Clearance 33 mL/min (70-130); Calcium 9.7 mg/dL (7.8-10.44); Carbon Dioxide 27 mmol/L (23-31); Chloride 100 mmol/L (98-107); Estimated GFR-MDRD 28; Glucose 282 mg/dL (80-115); Potassium 4.9 mmol/L (3.5-5.1); Sodium 134 mmol/L (136-145)
[2018-09-15] MEDS ORDERED: PROPOFOL 200 MG/20 ML VIAL ONE (13:06)
[2018-09-15] MEDS ORDERED: Iopamidol 370 76% 50 ML VIAL FS ONE (14:35)
[2018-09-15] MEDS ORDERED: Midazolam HCl 2 mg/2 ml Vial ONE (14:43)
[2018-09-15] MEDS ORDERED: Propofol 1,000 MG/100 ML VIAL IV ONE (14:46)
--- NOTE | 2018-09-15 16:10 | RAD ---
EXAM: Chest one view: HISTORY: Postoperative ICD COMPARISON: 05/04/2018 FINDINGS: Left ICD place without pneumothorax. Heart size: Within normal limits. The lungs: Clear of acute process. No evidence for pneumonia, pleural effusion, acute edema, or pneumothorax, or other significant acute process. IMPRESSION: No significant acute intrathoracic disease.
== END 2018-09-15 19:00 | disposition home or self-care (01) ==
LOC: CCL 09:51
PROVIDERS: ATTEND Internal Medicine Cardiovascular Disease
PROC: 02HK3KZ Insertion of Defibrillator Lead into Right Ventricle, Percutaneous Approach (ICD-10-PCS; principal; 2018-09-15)
PROC: 0JH608Z Insertion of Defibrillator Generator into Chest Subcutaneous Tissue and Fascia, Open Approach (ICD-10-PCS; principal; 2018-09-15)
DX: I13.0 Hypertensive heart and chronic kidney disease with heart failure and stage 1 through stage 4 chronic kidney disease, or unspecified chronic kidney disease (principal); N18.9 Chronic kidney disease, unspecified; I50.22 Chronic systolic (congestive) heart failure; I42.8 Other cardiomyopathies; I25.10 Atherosclerotic heart disease of native coronary artery without angina pectoris; Z79.82 Long term (current) use of aspirin; Z79.84 Long term (current) use of oral hypoglycemic drugs; Z79.899 Other long term (current) drug therapy
CPT/HCPCS: 33249; 36005; 36415; 71045; 75820; 80048; 85025; 85610; 85730; 93005; 93010; 93641; C1722; C1777; J0690; J2250; J2704; J3490; Q9967